=== PATIENT | male | born 1940 | race Caucasian/White ===

== ENCOUNTER 2016-08-11 11:29 | Outpatient (CLI) | payer MEDICARE, OTHER ==
[~2016-08-11] VITALS: Ht 175.3 cm; Wt 104.3 kg
[~2016-08-11 11:29] MED LIST: ALLP300T PO; ATEN-156 PO; FURO40TA4 PO; GBPN100C PO; LISI20TA PO; OXYC-281 PO; TMSL.4C PO
[2016-08-11] MEDS ORDERED: TRIAMCINOLONE ACET (KENALOG-40) 40 MG/ML 1 ML VIAL ONE (12:14)
[2016-08-11] MEDS ORDERED: BUPIVACAINE 0.25% 30 ML (SENSORCAINE) VIAL ONE (12:14)
[2016-08-11 12:50] VITALS: BP 130/70
[2016-08-11 13:24] VITALS: BP 151/70
--- NOTE | 2016-08-11 13:57 | Pain Medicine-Procedure ---
Procedure Pre-Op/Post-Op Diagnosis Diagnosis: disc disorder with radiculopathy, lumbar Indications for Operation Low back pain Attending Surgeon Meek Procedure Date of Service: Aug 11, 2016 Procedure: Lumbar Epidural Steroid Injection at the L5-S1 level under Fluoroscopic Guidance Procedure: Patient was identified in the holding area. After risks, benefits, and alternatives were discussed with the patient, informed consent was obtained. Patient was brought to the fluoroscopy suite and placed prone on the procedure room table. A time out was performed. Vital signs were monitored throughout the procedure. The patients low back was prepped and draped in the usual sterile fashion. The patients skin was anesthetized using 2% Lidocaine. A Tuohy needle was inserted and advanced to the L5-S1 epidural space under fluoroscopic guidance using the loss of resistance technique and intermittent projection of fluoroscopy. There was no paresthesia with needle placement. The needle position was confirmed in both the AP and lateral view. No contrast was utilized secondary to contrast allergy, after negative aspiration for heme or CSF, 2 ml of 0.25% Bupivicaine, 2ml of preservative free normal saline, and 80mg of Kenalog was injected. The needle was removed and a sterile bandage was placed and the patient was transferred to the recovery area in stable condition. After a brief period of observation, patient was discharged to home with no new neurological deficits and no apparent complications. Complications None HEIDI CAMPBELL MD Aug 11, 2016 1:57 pm
== END 2016-08-11 13:25 | disposition home or self-care (01) ==
LOC: CARD 11:29
PROVIDERS: ATTEND Pain Medicine Pain Medicine
DX: M51.16 Intervertebral disc disorders with radiculopathy, lumbar region (principal); Z79.899 Other long term (current) drug therapy
CPT/HCPCS: 62323

== ENCOUNTER 2016-10-23 12:33 | Outpatient (CLI) | payer MEDICARE, OTHER ==
[~2016-10-23] VITALS: Ht 175.3 cm; Wt 102.1 kg
[2016-10-23] MEDS ORDERED: BUPIVACAINE 0.25% 30 ML (SENSORCAINE) VIAL ONE (12:39)
[2016-10-23] MEDS ORDERED: TRIAMCINOLONE ACET (KENALOG-40) 40 MG/ML 1 ML VIAL ONE (12:39)
[2016-10-23 12:54] VITALS: BP 135/75
[2016-10-23 13:21] VITALS: BP 140/86
--- NOTE | 2016-10-23 14:30 | Pain Medicine-Procedure ---
Procedure Pre-Op/Post-Op Diagnosis Diagnosis: disc disorder with radiculopathy, lumbar Indications for Operation Low back pain and hip pain Attending Surgeon Meek Procedure Date of Service: Oct 23, 2016 Procedure: Lumbar Epidural Steroid Injection at the L5/S1 Level under Fluoroscopic Guidance and left sacroiliac joint injection Procedure: Patient was identified in the holding area. After risks, benefits, and alternatives were discussed with the patient, informed consent was obtained. Patient was brought to the fluoroscopy suite and placed prone on the procedure room table. A time out was performed. Vital signs were monitored throughout the procedure. The patients low back was prepped and draped in the usual sterile fashion. The patients skin was anesthetized using 2% Lidocaine. A Tuohy needle was inserted and advanced to the L5-S1 epidural space under fluoroscopic guidance using the loss of resistance technique and intermittent projection of fluoroscopy. There was no paresthesia with needle placement. The needle position was confirmed in both the AP and lateral view. No contrast dye was utilized secondary to history of contrast dye allergy after negative aspiration for heme or CSF, 2 ml of 0.25% Bupivicaine, 2ml of preservative free normal saline, and 80mg of Kenalog was injected. The needle was removed and a sterile bandage was placed. Attention was then directed to the left sacroiliac joint which was identified under fluoroscopic guidance. The skin overlying the posterior inferior one third of the sacroiliac joint was anesthetized with 1 percent lidocaine and a 22 -gauge 3-1/2 inch needle was inserted and advanced into the joint. Following negative aspiration a total of 40 mg of Kenalog and 2 mL of 0.25 percent bupivacaine was injected. Needle was flushed with lidocaine and removed. Sterile bandage was applied. Patient tolerated the procedures well with no apparent complications. Complications None HEIDI CAMPBELL MD Oct 23, 2016 2:30 pm
== END 2016-10-23 13:23 ==
LOC: CARD 12:33
PROVIDERS: ATTEND Pain Medicine Pain Medicine
DX: M53.3 Sacrococcygeal disorders, not elsewhere classified (principal); M51.16 Intervertebral disc disorders with radiculopathy, lumbar region
CPT/HCPCS: 27096; 62323

== ENCOUNTER → 2018-12-02 | Outpatient (CLI) | payer MEDICARE, OTHER ==
--- NOTE | 2018-12-02 15:22 | Diagnostic Imaging Report ---
INDICATION: Pain. FINDINGS: Arthritic changes to the wrist are present. No erosive element. No fracture or dislocation. IMPRESSION: No acute-appearing abnormality. Dictated by: Dictated on workstation # [id number]
--- NOTE | 2018-12-02 15:35 | Diagnostic Imaging Report ---
INDICATION: Pain with no known discrete injury. FINDINGS: Amputation at the level of the distal phalanx of the third finger has been performed. A ring adorns the fourth finger. There are osteoarthritic changes to the interphalangeal joints as well as carpus. No fracture or dislocation. IMPRESSION: Prior amputation and osteoarthritis. No acute-appearing bony abnormality. Dictated by: Dictated on workstation # [id number]
== END ==
LOC: RAD FS 14:54
PROVIDERS: ATTEND Family Medicine
DX: M19.042 Primary osteoarthritis, left hand (principal); M25.532 Pain in left wrist; Z89.022 Acquired absence of left finger(s)
CPT/HCPCS: 73110; 73130

== ENCOUNTER → 2019-07-22 | Outpatient (CLI) | payer MEDICARE, OTHER ==
--- NOTE | 2019-07-22 10:22 | Diagnostic Imaging Report ---
PROCEDURE: MR imaging cervical spine without contrast. TECHNIQUE: Multiplanar, multisequence MR imaging of the cervical spine was performed without contrast. INDICATION: Neck pain. No prior studies are available for comparison. FINDINGS: There is reversal of normal cervical lordotic curvature. Marrow signal intensity is unremarkable. There is multilevel degenerative disc disease with variable disc space narrowing and desiccation. This appears to be most significant at the C4-C5 and C5-C6 levels with more significant disc space narrowing and marginal osteophyte formation. The cervical spinal cord demonstrates normal homogeneous signal intensity. Craniocervical junction is unremarkable. C2-C3: Central canal is widely patent. Neural foramina are patent. C3-C4: Endplate osteophytes indent the ventral thecal sac but no central canal stenosis is seen. There is significant left neural foraminal stenosis and mild right neural foraminal stenosis. C4-C5: Endplate osteophytes indent the ventral thecal sac. No significant central canal stenosis is identified. There is severe left neural foraminal stenosis and moderate right neural foraminal stenosis. C5-C6: Endplate osteophytes indent the ventral thecal sac but no significant central canal narrowing is seen. There is severe left and moderate right neural foraminal stenosis. C6-C7: Central canal is patent. There is significant bilateral neural foraminal stenosis. C7-T1: Central canal is widely patent. There is moderate bilateral neural foraminal stenosis. Paraspinous tissues are unremarkable. IMPRESSION: Multilevel cervical spondylosis with multilevel neural foraminal stenosis described level by level above. No significant central canal stenosis is identified. Dictated by: Dictated on workstation # [id number]
== END ==
LOC: RAD 07:21
PROVIDERS: ATTEND Family Medicine
DX: M48.02 Spinal stenosis, cervical region (principal); M47.812 Spondylosis without myelopathy or radiculopathy, cervical region
CPT/HCPCS: 72141

== ENCOUNTER 2019-08-24 13:06 | Emergency (ER) | payer MEDICARE, OTHER ==
[~2019-08-24] VITALS: Ht 170.1 cm; Wt 94.7 kg
--- NOTE | 2019-08-24 13:43 | ED Abdominal Pain ---
General Chief Complaint: Abdominal/GI Problems Stated Complaint: LLQ PAIN History of Present Illness Date Seen by Provider: Aug 24, 2019 Time Seen by Provider: 13:20 Initial Comments Patient is here with left lower quadrant abdominal pain started on Sunday building over the last couple days has not had it before seems like it's muscular as he states had a normal bowel movement this morning no fever no chills history of bowel problems in the past with what sounds like an obstruction set it in for exploratory surgery when he had a bowel movement this all taken place about a year ago Timing/Duration: 2-3 Days Severity/Quality: Aching, Cramping, Sharp Location: LLQ Radiation: No Radiation Activities at Onset: None Modifying Factors: Improves With Coughing, Improves With Movement Associated Symptoms: No Fatigue, No Headache, No Weakness Allergies and Home Medications Allergies Coded Allergies: Iodinated Contrast Media (Unverified Allergy, Unknown, 08/24/19) Sulfa (Sulfonamide Antibiotics) (Unverified Allergy, Unknown, 08/24/19) alfuzosin HCl (Unverified Allergy, Unknown, 08/24/19) celecoxib (Unverified Allergy, Unknown, 08/24/19) levofloxacin (Verified Allergy, Unknown, 08/24/19) venom-wasp (Verified Allergy, Unknown, 08/24/19) Home Medications Allopurinol 300 Mg Tab, 300 MG PO HS, (Reported) Atenolol 50 Mg Tablet, 50 MG PO DAILY, (Reported) Furosemide 40 Mg Tablet, 1 EACH PO DAILY, (Reported) Gabapentin 100 Mg Cap, 200 MG PO HS, (Reported) Lisinopril 20 Mg Tablet, 20 MG PO DAILY, (Reported) Oxycodone Hcl/Acetaminophen 1 Each Tablet, 1 EACH PO Q6H PRN, (Reported) take 1 every 6hrs. as needed for pain Tamsulosin Hcl 0.4 Mg Cap, 0.4 MG PO DAILY, (Reported) take 1 tab 1/2 hr after supper daily Patient Home Medication List Home Medication List Reviewed: Yes Review of Systems Review of Systems Constitutional: No chills, No fever EENTM: No Ear Pain, No Throat Pain Respiratory: Denies Cough, Denies Wheezing Cardiovascular: Denies Chest Pain, Denies Irregular Heart Rate Gastrointestinal: Abdominal Pain; Denies Diarrhea, Denies Nausea, Denies Vomiting Genitourinary: Denies Frequency, Denies Hematuria Musculoskeletal: No joint pain, No joint swelling Skin: No lesions, No rash Psychiatric/Neurological: Denies Headache, Denies Numbness, Denies Tingling Past [id number] Hx Past Med/Social Hx: Reviewed Nursing Past Med/Soc Hx Patient Social History Alcohol Use: Denies Use Recreational Drug Use: No Smoking Status: Never a Smoker 2nd Hand Smoke Exposure: No Recent Foreign Travel: No Recent Hopitalizations: No Physical Abuse: No Sexual Abuse: No Mistreated: No Fear: No Immunizations Up To Date Tetanus Booster (TDap): Unknown Date of Pneumonia Vaccine: Apr 22, 2008 Seasonal Allergies Seasonal Allergies: No Past Medical History Surgeries: No Respiratory: Yes Sleep Apnea Cardiac: Yes (Proxsymal Atrial Tachycardia) Hypertension Neurological: No Genitourinary: Yes Benign Prostatic Hyperpl Gastrointestinal: No Musculoskeletal: Yes (GOUT) Endocrine: Yes Diabetes, Non-Insulin dep HEENT: No Cancer: Yes Skin Psychosocial: No Integumentary: No Blood Disorders: No Physical Exam Vital Signs Vital Signs - First Documented 08/24/19 13:36 Temp 37.1 Pulse 69 Resp 18 B/P (MAP) 112/56 (74) Pulse Ox 96 O2 Delivery Room Air Capillary Refill : Height/Weight/BMI Height: 5'9.00" Weight: 225lbs. 0.0oz. 102.992222jf; 33.2 BMI Method: General Appearance: WD/WN, no apparent distress HEENT: PERRL/EOMI, normal ENT inspection, pharynx normal Neck: full range of motion, normal inspection Respiratory: normal breath sounds, no respiratory distress Cardiovascular: regular rate, rhythm, no murmur Gastrointestinal: soft; No distended; tenderness Extremities: normal range of motion, non-tender Neurologic/Psychiatric: normal mood/affect, oriented x 3 Skin: normal color, warm/dry; No rash Progress/Results/Core Measures Results/Orders Lab Results Laboratory Tests Test 08/24/19 13:45 Range/Units White Blood Count 8.7 4.3-11.0 10^3/uL Red Blood Count 5.37 4.35-5.85 10^6/uL Hemoglobin 16.6 13.3-17.7 G/DL Hematocrit 50 40-54 % Mean Corpuscular Volume 93 80-99 FL Mean Corpuscular Hemoglobin 31 25-34 PG Mean Corpuscular Hemoglobin Concent 33 32-36 G/DL Red Cell Distribution Width 14.7 H 10.0-14.5 % Platelet Count 178 130-400 10^3/uL Mean Platelet Volume 10.6 H 7.4-10.4 FL Neutrophils (%) (Auto) 61 42-75 % Lymphocytes (%) (Auto) 29 12-44 % Monocytes (%) (Auto) 8 0-12 % Eosinophils (%) (Auto) 1 0-10 % Basophils (%) (Auto) 1 0-10 % Neutrophils # (Auto) 5.3 1.8-7.8 X 10^3 Lymphocytes # (Auto) 2.5 1.0-4.0 X 10^3 Monocytes # (Auto) 0.7 0.0-1.0 X 10^3 Eosinophils # (Auto) 0.1 0.0-0.3 10^3/uL Basophils # (Auto) 0.0 0.0-0.1 10^3/uL Neutrophils % (Manual) 69 % Lymphocytes % (Manual) 24 % Monocytes % (Manual) 4 % Eosinophils % (Manual) 2 % Basophils % (Manual) 1 % Band Neutrophils 0 % Blood Morphology Comment NORMAL Urine Color YELLOW Urine Clarity CLEAR Urine pH 7.0 5-9 Urine Specific [place] 1.020 1.016-1.022 Urine Protein NEGATIVE NEGATIVE Urine Glucose (UA) NEGATIVE NEGATIVE Urine Ketones NEGATIVE NEGATIVE Urine Nitrite NEGATIVE NEGATIVE Urine Bilirubin NEGATIVE NEGATIVE Urine Urobilinogen 0.2 < = 1.0 MG/DL Urine Leukocyte Esterase NEGATIVE NEGATIVE Urine RBC (Auto) NEGATIVE NEGATIVE Urine RBC NONE /HPF Urine WBC NONE /HPF Urine Squamous Epithelial Cells RARE /HPF Urine Crystals NONE /LPF Urine Bacteria NONE /HPF Urine Casts NONE /LPF Urine Mucus NEGATIVE /LPF Urine Culture Indicated NO Sodium Level 139 135-145 MMOL/L Potassium Level 4.1 3.6-5.0 MMOL/L Chloride Level 101 98-107 MMOL/L Carbon Dioxide Level 24 21-32 MMOL/L Anion Gap 14 5-14 MMOL/L Blood Urea Nitrogen 23 H 7-18 MG/DL Creatinine 1.14 0.60-1.30 MG/DL Estimat Glomerular Filtration Rate > 60 BUN/Creatinine Ratio 20 Glucose Level 124 H 70-105 MG/DL Calcium Level 9.5 8.5-10.1 MG/DL Corrected Calcium 9.2 8.5-10.1 MG/DL Total Bilirubin 0.6 0.1-1.0 MG/DL Aspartate Amino Transf (AST/SGOT) 24 5-34 U/L Alanine Aminotransferase (ALT/SGPT) 19 0-55 U/L Alkaline Phosphatase 99 40-136 U/L Total Protein 7.6 6.4-8.2 GM/DL Albumin 4.4 3.2-4.5 GM/DL My Orders Orders - MELVIN PADILLA JR, MD Cbc And Manual Diff (08/24/19 13:36) Comprehensive Metabolic Panel (08/24/19 13:36) Urinalysis (08/24/19 13:36) Ct Abdomen/Pelvis Wo (08/24/19 13:36) Vital Signs/I&O 08/24/19 13:36 Temp 37.1 Pulse 69 Resp 18 B/P (MAP) 112/56 (74) Pulse Ox 96 O2 Delivery Room Air Progress Progress Note : Time: 14:[address] scan showed an epiploic appendix at this point to feel like it's consistent with what he is feeling. Will follow up with his physician mid to late week Departure Impression Primary Impression: Epiploic appendagitis Disposition: 01 HOME, SELF-CARE Condition: Stable Departure-Patient Inst. Referrals: SARAH MURRY MD (PCP/Family) Primary Care Physician MELVIN PADILLA JR, MD Aug 24, 2019 13:43
[2019-08-24 13:57] LABS: BILIRUBIN,URINE NEGATIVE (NEGATIVE); CLARITY,URINE CLEAR; COLOR,URINE YELLOW; GLUCOSE, URINE (UA) NEGATIVE (NEGATIVE); KETONES,URINE NEGATIVE (NEGATIVE); LEUKOCYTE ESTERASE ,URINE NEGATIVE (NEGATIVE); NITRITE,URINE NEGATIVE (NEGATIVE); PROTEIN,URINE NEGATIVE (NEGATIVE); SQUAMOUS EPITHELIAL CELL,UR RARE /HPF; WHITE BLOOD COUNT 8.7 10^3/uL (4.3-11.0)
[2019-08-24 13:58] LABS: BASOPHILS % (AUTO) 1 % (0-10); EOSINOPHILS # (AUTO) 0.1 10^3/uL (0.0-0.3); EOSINOPHILS % (AUTO) 1 % (0-10); HEMATOCRIT 50 % (40-54); HEMOGLOBIN 16.6 G/DL (13.3-17.7); LYMPHOCYTES # (AUTO) 2.5 X 10^3 (1.0-4.0); LYMPHOCYTES % (AUTO) 29 % (12-44); MEAN CORPUSCULAR HEMOGLOBIN 31 PG (25-34); MEAN CORPUSCULAR HGB CONC 33 G/DL (32-36); MEAN CORPUSCULAR VOLUME 93 FL (80-99); MEAN PLATELET VOLUME 10.6 FL (7.4-10.4); MONOCYTES # (AUTO) 0.7 X 10^3 (0.0-1.0); MONOCYTES % (AUTO) 8 % (0-12); NEUTROPHILS # (AUTO) 5.3 X 10^3 (1.8-7.8); NEUTROPHILS % (AUTO) 61 % (42-75); PLATELET COUNT 178 10^3/uL (130-400); RED CELL DISTRIBUTION WIDTH 14.7 % (10.0-14.5)
[2019-08-24 14:21] LABS: CHLORIDE 101 MMOL/L (98-107); POTASSIUM 4.1 MMOL/L (3.6-5.0); SODIUM 139 MMOL/L (135-145)
[2019-08-24 14:22] LABS: ALANINE AMINOTRANSFERASE 19 U/L (0-55); ALBUMIN 4.4 GM/DL (3.2-4.5); ALKALINE PHOSPHATASE 99 U/L (40-136); BILIRUBIN,TOTAL 0.6 MG/DL (0.1-1.0); BUN/CREATININE RATIO 20; CALCIUM 9.5 MG/DL (8.5-10.1); CARBON DIOXIDE 24 MMOL/L (21-32); CREATININE SERUM 1.14 MG/DL (0.60-1.30); GFR ESTIMATED > 60; GLUCOSE 124 MG/DL (70-105); TOTAL PROTEIN 7.6 GM/DL (6.4-8.2)
--- NOTE | 2019-08-24 14:22 | Diagnostic Imaging Report ---
PROCEDURE: CT abdomen and pelvis without contrast. TECHNIQUE: Multiple contiguous axial images were obtained through the abdomen and pelvis without the use of intravenous contrast. Auto Exposure Controls were utilized during the CT exam to meet ALARA standards for radiation dose reduction. INDICATION: Lower abdominal pain. COMPARISON: None. FINDINGS: The heart is unremarkable. Bibasilar scarring is noted without focal consolidation. Bilateral nonobstructing renal calculi are seen. The largest in the right mid kidney measures 0.4 cm and the largest in the mid left kidney measures 0.3 cm. No evidence of hydronephrosis or obstructing calculi. The urinary bladder is nondistended. The liver, spleen, pancreas, and adrenal glands have a normal noncontrast CT appearance. Cholelithiasis is present without CT evidence of acute cholecystitis. There is no pathologically enlarged mesenteric or retroperitoneal adenopathy. The bowel loops are nondilated. Focal loculated fat stranding is seen adjacent to the distal descending colon/proximal sigmoid colon in the left lower quadrant (image 57 series 2). There is no free fluid or free air. Degenerative changes are noted in the lumbar spine without acute abnormalities. There is no free air, loculated collection, or adenopathy in the pelvis. IMPRESSION: 1. Findings most consistent with epiploic appendagitis involving the distal descending colon/proximal sigmoid colon. 2. Bilateral nonobstructing renal calculi. No obstructing calculi or hydronephrosis. 3. Cholelithiasis without CT evidence of acute cholecystitis. Dictated by: Dictated on workstation # [id number]
[2019-08-24 14:23] LABS: BAND NEUTROPHILS 0 %; BASOPHILS % (MANUAL) 1 %; EOSINOPHILS % (MANUAL) 2 %; LYMPHOCYTES % (MANUAL) 24 %; MONOCYTES % (MANUAL) 4 %; NEUTROPHILS % (MANUAL) 69 %; RBC MORPH NORMAL
[2019-08-24 14:53] VITALS: BP 112/56
== END 2019-08-24 14:52 | disposition home or self-care (01) ==
LOC: EDUNIT# 13:06 → ER FS 13:08
DX: K65.9 Peritonitis, unspecified (principal); I10 Essential (primary) hypertension; M10.9 Gout, unspecified; Z85.828 Personal history of other malignant neoplasm of skin; Z91.041 Radiographic dye allergy status; Z88.2 Allergy status to sulfonamides; Z88.6 Allergy status to analgesic agent; Z88.1 Allergy status to other antibiotic agents; Z88.8 Allergy status to other drugs, medicaments and biological substances
CPT/HCPCS: 36415; 74176; 80053; 81000; 85007; 85027

== ENCOUNTER 2020-10-03 19:30 | Emergency (ER) | payer MEDICARE, OTHER ==
--- NOTE | 2020-10-03 20:10 | ED General ---
General Chief Complaint: Fever-Adult/Adol Stated Complaint: FEVER/CHILLS Source of Information: Patient Exam Limitations: No Limitations History of Present Illness Date Seen by Provider: Oct 03, 2020 Time Seen by Provider: 19:53 80-year-old male with hypertension presents with fevers and nausea/vomiting. Patient states that this morning he had an episode of nausea and vomiting x1 that was self-limited. Nonbloody, nonbilious. Since that time patient has felt fine but noticed this evening he had some chills so took his temperature and it read 101 F so he came in for evaluation. At this current time, patient has no complaints. He says all of his symptoms have resolved but came in because of the fever. Patient denies headache, rash, numbness, tingling, dizziness, chest pain, shortness of breath, abdominal pain, nausea, vomiting, dysuria, hematuria. Patient received his first COVID-19 vaccine 3 weeks ago Allergies and Home Medications Allergies Coded Allergies: Iodinated Contrast Media (Unverified Allergy, Unknown, 08/24/19) Sulfa (Sulfonamide Antibiotics) (Unverified Allergy, Unknown, 08/24/19) alfuzosin HCl (Unverified Allergy, Unknown, 08/24/19) celecoxib (Unverified Allergy, Unknown, 08/24/19) levofloxacin (Verified Allergy, Unknown, 08/24/19) venom-wasp (Verified Allergy, Unknown, 08/24/19) Home Medications Allopurinol 300 Mg Tab, 300 MG PO HS, (Reported) Atenolol 50 Mg Tablet, 50 MG PO DAILY, (Reported) Furosemide 40 Mg Tablet, 1 EACH PO DAILY, (Reported) Gabapentin 100 Mg Cap, 200 MG PO HS, (Reported) Lisinopril 20 Mg Tablet, 20 MG PO DAILY, (Reported) Oxycodone Hcl/Acetaminophen 1 Each Tablet, 1 EACH PO Q6H PRN, (Reported) take 1 every 6hrs. as needed for pain Tamsulosin Hcl 0.4 Mg Cap, 0.4 MG PO DAILY, (Reported) take 1 tab 1/2 hr after supper daily Patient Home Medication List Home Medication List Reviewed: Yes Review of Systems Review of Systems Constitutional: chills, fever EENTM: No blurred vision, No double vision Respiratory: No cough, No short of breath Cardiovascular: No chest pain, No syncope Gastrointestinal: No abdominal pain, No constipation, No diarrhea; nausea, vomiting Genitourinary: No dysuria, No frequency Musculoskeletal: No back pain Skin: No rash All Other Systems Reviewed Negative Unless Noted: Yes Past Cmfmdcp-Quyfyh-Tnmlve Hx Past Med/Social Hx: Reviewed Nursing Past Med/Soc Hx Patient Social History Alcohol Use: Denies Use Smoking Status: Never a Smoker 2nd Hand Smoke Exposure: No Recent Hopitalizations: No Immunizations Up To Date Tetanus Booster (TDap): Unknown Date of Pneumonia Vaccine: Apr 22, 2008 Seasonal Allergies Seasonal Allergies: No Past Medical History Surgeries: No Respiratory: Yes Sleep Apnea Cardiac: Yes (Proxsymal Atrial Tachycardia) Hypertension Neurological: No Genitourinary: Yes Benign Prostatic Hyperpl Gastrointestinal: No Musculoskeletal: Yes (GOUT) Endocrine: Yes Diabetes, Non-Insulin dep HEENT: No Cancer: Yes Skin Psychosocial: No Integumentary: No Blood Disorders: No Family Medical History Reviewed Nursing Family Hx Physical Exam Vital Signs Vital Signs - First Documented 10/03/20 19:50 Temp 38.4 Pulse 85 Resp 18 B/P (MAP) 134/62 (86) Pulse Ox 95 O2 Delivery Room Air Capillary Refill : Height, Weight, BMI Height: 5'9.00" Weight: 225lbs. 0.0oz. [id number]; 32.00 BMI Method: General Appearance: No Apparent Distress, WD/WN Eyes: Bilateral Eye Normal Inspection, Bilateral Eye PERRL HEENT: PERRL/EOMI, TMs Normal, Pharynx Normal Neck: Full Range of Motion, Normal Inspection Respiratory: Lungs Clear, Normal Breath Sounds Cardiovascular: Regular Rate, Rhythm, No Edema Gastrointestinal: Normal Bowel Sounds, No Organomegaly, Non Tender, Soft Back: Normal Inspection, No CVA Tenderness, No Vertebral Tenderness Extremity: Normal Capillary Refill, Normal Inspection, Normal Range of Motion Neurologic/Psychiatric: Alert, Oriented x3, No Motor/Sensory Deficits, Normal Mood/Affect, ice sculptor II-XII Norm as Tested Skin: Normal Color, Warm/Dry Lymphatic: No Adenopathy Progress/Results/Core Measures Suspected Sepsis SIRS Temperature: Pulse: Respiratory Rate: Laboratory Tests 10/03/20 20:13: White Blood Count 9.0 Blood Pressure / Mean: Laboratory Tests 10/03/20 20:13: Creatinine 1.06, INR Comment 1.0, Platelet Count 177, Total Bilirubin 2.7H Results/Orders Lab Results Laboratory Tests Test 10/03/20 20:13 10/03/20 20:15 Range/Units White Blood Count 9.0 4.3-11.0 10^3/uL Red Blood Count 5.35 4.35-5.85 10^6/uL Hemoglobin 16.1 13.3-17.7 G/DL Hematocrit 48 40-54 % Mean Corpuscular Volume 91 80-99 FL Mean Corpuscular Hemoglobin 30 25-34 PG Mean Corpuscular Hemoglobin Concent 33 32-36 G/DL Red Cell Distribution Width 13.9 10.0-14.5 % Platelet Count 177 130-400 10^3/uL Mean Platelet Volume 10.3 7.4-10.4 FL Immature Granulocyte % (Auto) 0 % Neutrophils (%) (Auto) 81 H 42-75 % Lymphocytes (%) (Auto) 8 L 12-44 % Monocytes (%) (Auto) 10 0-12 % Eosinophils (%) (Auto) 0 0-10 % Basophils (%) (Auto) 0 0-10 % Neutrophils # (Auto) 7.3 1.8-7.8 X 10^3 Lymphocytes # (Auto) 0.8 L 1.0-4.0 X 10^3 Monocytes # (Auto) 0.9 0.0-1.0 X 10^3 Eosinophils # (Auto) 0.0 0.0-0.3 10^3/uL Basophils # (Auto) 0.0 0.0-0.1 10^3/uL Immature Granulocyte # (Auto) 0.0 0.0-0.1 10^3/uL Prothrombin Time 13.8 12.2-14.7 SEC INR Comment 1.0 0.8-1.4 Sodium Level 135 135-145 MMOL/L Potassium Level 4.1 3.6-5.0 MMOL/L Chloride Level 103 98-107 MMOL/L Carbon Dioxide Level 19 L 21-32 MMOL/L Anion Gap 13 5-14 MMOL/L Blood Urea Nitrogen 17 7-18 MG/DL Creatinine 1.06 0.60-1.30 MG/DL Estimat Glomerular Filtration Rate > 60 BUN/Creatinine Ratio 16 Glucose Level 111 H 70-105 MG/DL Calcium Level 9.2 8.5-10.1 MG/DL Corrected Calcium 9.4 8.5-10.1 MG/DL Total Bilirubin 2.7 H 0.1-1.0 MG/DL Aspartate Amino Transf (AST/SGOT) 293 H 5-34 U/L Alanine Aminotransferase (ALT/SGPT) 163 H 0-55 U/L Alkaline Phosphatase 197 H 40-136 U/L C-Reactive Protein 1.48 H <0.50 MG/DL Total Protein 7.3 6.4-8.2 GM/DL Albumin 3.8 3.2-4.5 GM/DL Lipase 26 8-78 U/L My Orders Orders - BARB MORALES MD Cbc With Automated Diff (10/03/20 20:03) Comprehensive Metabolic Panel (10/03/20 20:03) Chest 1 View Ap/Pa Only (10/03/20 20:03) Protime With Inr (10/03/20 20:03) Crp Fs (10/03/20 20:03) Ed Iv/Invasive Line Start (10/03/20 20:06) Coronavirus Sars-Cov-2 So 2019 (10/03/20 20:18) Lipase (10/03/20 20:53) Ct Abdomen/Pelvis Wo (10/03/20 20:56) Vital Signs/I&O 10/03/20 19:50 Temp 38.4 Pulse 85 Resp 18 B/P (MAP) 134/62 (86) Pulse Ox 95 O2 Delivery Room Air Capillary Refill : Progress Note : Progress Note 2029 -discussed elevated liver enzymes and bilirubin. These findings with fever, right upper quadrant pain, nausea and vomiting raised the concern for choledocholithiasis. Discussed with patient need for CT abdomen pelvis to which she agreed. 2114 - discussed case with surgery. recommend discussing course with patient. After long discussion, patient prefers to go home and follow up for imaging and eval tomorrow. Strict return precautions given. Diagnostic Imaging Diagonstic Imaging: Xray Plain Films/CT/US/NM/MRI: chest Comments CT ABDOMEN/PELVIS WO PROCEDURE: CT abdomen and pelvis without contrast. TECHNIQUE: Multiple contiguous axial images were obtained through the abdomen and pelvis without the use of intravenous contrast. Auto Exposure Controls were utilized during the CT exam to meet ALARA standards for radiation dose reduction. DATE: October 03, 2020. COMPARISON: CT abdomen and pelvis August 24, 2019. INDICATION: 80-year-old male, right upper quadrant abdominal pain. FINDINGS: There are limitations for evaluation of the abdominal organs, neoplastic processes, abscess, and limited evaluation of the vasculature relating to the lack of intravenous contrast. There are peripheral reticular lung opacities consistent with findings of interstitial lung disease. There is no peripheral honeycombing. There is no additional consolidation in the imaged lung bases. The heart is not enlarged. There is no pericardial effusion. The liver is unremarkable in size and contour. There is cholelithiasis without evidence of acute cholecystitis. No biliary ductal dilation. The main pancreatic duct is not grossly dilated. Limited noncontrast evaluation of the pancreatic parenchyma is unremarkable. The spleen is normal in size. The adrenal glands are unremarkable. There is a 3 mm nonobstructing right renal stone on axial image 32. There is 2 mm nonobstructing left renal stone on axial image 33. Urinary collecting systems are not distended. There is no identified ureteral stone. Urinary bladder is unremarkable. The intestinal tract is not distended. There is no evidence of acute appendicitis. There is no free intraperitoneal air. There is no drainable fluid collection. There is no free pelvic fluid. There are atherosclerotic calcifications. There is no identified abnormally enlarged lymph node in the abdomen or pelvis meeting CT size criteria for adenopathy. There are multilevel degenerative changes of the spine. There is no identified acute bony abnormality. IMPRESSION: CT ABDOMEN AND PELVIS. 1. Cholelithiasis without evidence of acute cholecystitis. No biliary ductal dilation. 2. Findings of interstitial lung disease without identified acute cardiopulmonary abnormality. 3. Nonobstructing renal stones without ureteral stone or hydronephrosis. 4. No identified acute abnormality in the abdomen or pelvis. CHEST 1 VIEW AP/PA ONLY EXAMINATION: Chest radiograph, portable AP view. DATE: 10/03/2020 8:22 PM INDICATION: 80-year-old male, fever. COMPARISON: CT abdomen and pelvis August 24, 2019. FINDINGS: Heart size and mediastinal contours are unremarkable. There is no identified pneumothorax. There is no large pleural effusion. There are bilateral predominantly interstitial opacities with a mid and lower lung zone predominance. There is note of mild findings of interstitial lung disease on comparison CT of August 24, 2019. IMPRESSION: 1. Bilateral predominantly interstitial opacities with a mid and lower lung zone predominance. This most likely reflects findings of interstitial lung disease. Chest radiograph comparisons are not available to directly compare. Some components of interstitial edema or atypical infection would be difficult to exclude. Departure Impression Primary Impression: Fever Qualified Codes: R50.9 - Fever, unspecified Additional Impressions: Cholelithiasis Qualified Codes: K80.20 - Calculus of gallbladder without cholecystitis without obstruction Nausea & vomiting Qualified Codes: R11.2 - Nausea with vomiting, unspecified Disposition: 01 HOME, SELF-CARE Condition: Stable Departure-Patient Inst. Decision time for Depature: 21:51 Referrals: JENNIFER MOYER PANKAJ K MD (PCP/Family) Primary Care Physician Patient Instructions: Gallstones (DC), Gallbladder Diet, Fever, Adult (DC) BARB MORALES MD Oct 03, 2020 20:10
[2020-10-03 20:29] LABS: BASOPHILS % (AUTO) 0 % (0-10); EOSINOPHILS % (AUTO) 0 % (0-10); HEMATOCRIT 48 % (40-54); HEMOGLOBIN 16.1 G/DL (13.3-17.7); LYMPHOCYTES # (AUTO) 0.8 X 10^3 (1.0-4.0); LYMPHOCYTES % (AUTO) 8 % (12-44); MEAN CORPUSCULAR HEMOGLOBIN 30 PG (25-34); MEAN CORPUSCULAR HGB CONC 33 G/DL (32-36); MEAN CORPUSCULAR VOLUME 91 FL (80-99); MEAN PLATELET VOLUME 10.3 FL (7.4-10.4); MONOCYTES # (AUTO) 0.9 X 10^3 (0.0-1.0); MONOCYTES % (AUTO) 10 % (0-12); NEUTROPHILS # (AUTO) 7.3 X 10^3 (1.8-7.8); NEUTROPHILS % (AUTO) 81 % (42-75); PLATELET COUNT 177 10^3/uL (130-400)
--- NOTE | 2020-10-03 20:32 | Diagnostic Imaging Report ---
EXAMINATION: Chest radiograph, portable AP view. DATE: 10/03/2020 8:22 PM INDICATION: 80-year-old male, fever. COMPARISON: CT abdomen and pelvis August 24, 2019. FINDINGS: Heart size and mediastinal contours are unremarkable. There is no identified pneumothorax. There is no large pleural effusion. There are bilateral predominantly interstitial opacities with a mid and lower lung zone predominance. There is note of mild findings of interstitial lung disease on comparison CT of August 24, 2019. IMPRESSION: 1. Bilateral predominantly interstitial opacities with a mid and lower lung zone predominance. This most likely reflects findings of interstitial lung disease. Chest radiograph comparisons are not available to directly compare. Some components of interstitial edema or atypical infection would be difficult to exclude. Dictated by: Dictated on workstation # [id number]
[2020-10-03 20:39] LABS: ALANINE AMINOTRANSFERASE 163 U/L (0-55); ALBUMIN 3.8 GM/DL (3.2-4.5); ALKALINE PHOSPHATASE 197 U/L (40-136); BILIRUBIN,TOTAL 2.7 MG/DL (0.1-1.0); BUN/CREATININE RATIO 16; CALCIUM 9.2 MG/DL (8.5-10.1); CARBON DIOXIDE 19 MMOL/L (21-32); CHLORIDE 103 MMOL/L (98-107); CREATININE SERUM 1.06 MG/DL (0.60-1.30); GFR ESTIMATED > 60; GLUCOSE 111 MG/DL (70-105); POTASSIUM 4.1 MMOL/L (3.6-5.0); SODIUM 135 MMOL/L (135-145); TOTAL PROTEIN 7.3 GM/DL (6.4-8.2)
[2020-10-03 21:00] LABS: PROTHROMBIN TIME PATIENT 13.8 SEC (12.2-14.7)
--- NOTE | 2020-10-03 21:24 | Diagnostic Imaging Report ---
PROCEDURE: CT abdomen and pelvis without contrast. TECHNIQUE: Multiple contiguous axial images were obtained through the abdomen and pelvis without the use of intravenous contrast. Auto Exposure Controls were utilized during the CT exam to meet ALARA standards for radiation dose reduction. DATE: October 03, 2020. COMPARISON: CT abdomen and pelvis August 24, 2019. INDICATION: 80-year-old male, right upper quadrant abdominal pain. FINDINGS: There are limitations for evaluation of the abdominal organs, neoplastic processes, abscess, and limited evaluation of the vasculature relating to the lack of intravenous contrast. There are peripheral reticular lung opacities consistent with findings of interstitial lung disease. There is no peripheral honeycombing. There is no additional consolidation in the imaged lung bases. The heart is not enlarged. There is no pericardial effusion. The liver is unremarkable in size and contour. There is cholelithiasis without evidence of acute cholecystitis. No biliary ductal dilation. The main pancreatic duct is not grossly dilated. Limited noncontrast evaluation of the pancreatic parenchyma is unremarkable. The spleen is normal in size. The adrenal glands are unremarkable. There is a 3 mm nonobstructing right renal stone on axial image 32. There is 2 mm nonobstructing left renal stone on axial image 33. Urinary collecting systems are not distended. There is no identified ureteral stone. Urinary bladder is unremarkable. The intestinal tract is not distended. There is no evidence of acute appendicitis. There is no free intraperitoneal air. There is no drainable fluid collection. There is no free pelvic fluid. There are atherosclerotic calcifications. There is no identified abnormally enlarged lymph node in the abdomen or pelvis meeting CT size criteria for adenopathy. There are multilevel degenerative changes of the spine. There is no identified acute bony abnormality. IMPRESSION: CT ABDOMEN AND PELVIS. 1. Cholelithiasis without evidence of acute cholecystitis. No biliary ductal dilation. 2. Findings of interstitial lung disease without identified acute cardiopulmonary abnormality. 3. Nonobstructing renal stones without ureteral stone or hydronephrosis. 4. No identified acute abnormality in the abdomen or pelvis. Dictated by: Dictated on workstation # [id number]
[2020-10-03 22:03] VITALS: BP 134/62
== END 2020-10-03 22:01 | disposition home or self-care (01) ==
LOC: EDUNIT# 19:30 → ER FS 19:33
DX: K80.20 Calculus of gallbladder without cholecystitis without obstruction (principal); I10 Essential (primary) hypertension; N40.0 Benign prostatic hyperplasia without lower urinary tract symptoms; Z20.822 Contact with and (suspected) exposure to COVID-19; Z88.2 Allergy status to sulfonamides; Z88.1 Allergy status to other antibiotic agents; Z91.041 Radiographic dye allergy status; Z88.8 Allergy status to other drugs, medicaments and biological substances; Z85.828 Personal history of other malignant neoplasm of skin
CPT/HCPCS: 36415; 71045; 74176; 80053; 83690; 85025; 85610; 86141; 99284; U0002; 87635

== ENCOUNTER 2020-10-04 16:30 | Emergency (ER) | payer MEDICARE, OTHER ==
[~2020-10-04] VITALS: Ht 170.2 cm; Wt 96.2 kg
--- NOTE | 2020-10-04 16:59 | ED General ---
General Stated Complaint: BILIRUBIN ELEVATED Source of Information: Patient, Old Records History of Present Illness Date Seen by Provider: Oct 04, 2020 Time Seen by Provider: 16:30 Initial Comments 80-year-old male presenting with elevated bilirubin on lab. He was seen last night in the emergency department for fever of 101 and having 1 episode of nausea and vomiting. He also had some right-sided upper abdominal pain and states this came on after eating some cortés with grease. He had a CT scan and labs that showed evidence of gallstones but no cholecystitis. He was offered admission for further evaluation and work-up but declined him at home. He came back today for an outpatient ultrasound as well as repeat labs. The outpatient ultrasound showed multiple gallstones and no pericholecystic fluid. He had appeared more jaundiced today and his labs showed his bilirubin went from 2.7 last night to 9.0 today. When checked with Dr. Portillo the surgeon on-call he recommended the patient be transferred to a facility that had ERCP capabilities and GI. Patient reports last eating some eggs and drinking some water around 830 this morning. He has had some right-sided abdominal and shoulder and chest pain for the last few weeks. He said that this does get a little worse after eating. Allergies and Home Medications Allergies Coded Allergies: Iodinated Contrast Media (Unverified Allergy, Unknown, 08/24/19) Sulfa (Sulfonamide Antibiotics) (Unverified Allergy, Unknown, 08/24/19) alfuzosin HCl (Unverified Allergy, Unknown, 08/24/19) celecoxib (Unverified Allergy, Unknown, 08/24/19) levofloxacin (Verified Allergy, Unknown, 08/24/19) venom-wasp (Verified Allergy, Unknown, 08/24/19) Home Medications Allopurinol 300 Mg Tab, 300 MG PO HS, (Reported) Atenolol 50 Mg Tablet, 50 MG PO DAILY, (Reported) Furosemide 40 Mg Tablet, 1 EACH PO DAILY, (Reported) Gabapentin 100 Mg Cap, 200 MG PO HS, (Reported) Lisinopril 20 Mg Tablet, 20 MG PO DAILY, (Reported) Oxycodone Hcl/Acetaminophen 1 Each Tablet, 1 EACH PO Q6H PRN, (Reported) take 1 every 6hrs. as needed for pain Tamsulosin Hcl 0.4 Mg Cap, 0.4 MG PO DAILY, (Reported) take 1 tab 1/2 hr after supper daily Patient Home Medication List Home Medication List Reviewed: Yes Review of Systems Review of Systems Constitutional: chills, fever (101 F yesterday) EENTM: no symptoms reported Respiratory: no symptoms reported; No cough Cardiovascular: no symptoms reported Gastrointestinal: RUQ; No diarrhea; nausea, vomiting (x1 last night) Genitourinary: other (dark colored urine in last 24 hours becoming more orange colored) Musculoskeletal: see HPI, other (pain going up to right shoulder from RUQ for last few weeks and worse after eating) Skin: change in color (becoming more jaundice ) Psychiatric/Neurological: Denies Headache Hematologic/Lymphatic: Denies Easy Bleeding, Denies Easy Bruising Past Kxyyath-Vhrnlt-Jkwibb Hx Past Med/Social Hx: Reviewed Nursing Past Med/Soc Hx Patient Social History 2nd Hand Smoke Exposure: No Recent Hopitalizations: No Immunizations Up To Date Tetanus Booster (TDap): Unknown Date of Pneumonia Vaccine: Apr 22, 2008 Seasonal Allergies Seasonal Allergies: No Past Medical History Surgeries: No Respiratory: Yes Sleep Apnea Cardiac: Yes (Proxsymal Atrial Tachycardia) Hypertension Neurological: No Genitourinary: Yes Benign Prostatic Hyperpl Gastrointestinal: No Musculoskeletal: Yes (GOUT) Endocrine: Yes Diabetes, Non-Insulin dep HEENT: No Cancer: Yes Skin Psychosocial: No Integumentary: No Blood Disorders: No Physical Exam Vital Signs Vital Signs - First Documented 10/04/20 16:32 Temp 37.2 Pulse 76 Resp 18 B/P (MAP) 145/73 (97) Pulse Ox 96 O2 Delivery Room Air Capillary Refill : Height, Weight, BMI Height: 5'9.00" Weight: 225lbs. 0.0oz. [id number]; 32.00 BMI Method: General Appearance: No Apparent Distress, WD/WN HEENT: PERRL/EOMI, Pharynx Normal; No Photophobia; Scleral Icterus (L), Scleral Icterus (R) Neck: Supple Respiratory: Chest Non Tender, Lungs Clear, Normal Breath Sounds, No Accessory Muscle Use, No Respiratory Distress Cardiovascular: Regular Rate, Rhythm, Normal Peripheral Pulses Gastrointestinal: Normal Bowel Sounds, No Pulsatile Mass, Soft, Distended (mild distention to abdomen and ventral hernia); No Guarding; Hernia (ventral); No Rebound; Other (Positive Mendoza's sign on exam as pt had pain with deep palpation of RUQ, but only when he takes a deep breath) Rectal: Deferred Back: No CVA Tenderness Extremity: Normal Capillary Refill, No Pedal Edema Neurologic/Psychiatric: Alert, Oriented x3, drug and alcohol counselor II-XII Norm as Tested Skin: Warm/Dry, Jaundice Focused Exam Lactate Level 10/04/20 17:00: Lactic Acid Level 1.02 Lactic Acid Level Laboratory Tests Test 10/04/20 17:00 Lactic Acid Level 1.02 MMOL/L (0.50-2.00) Progress/Results/Core Measures Suspected Sepsis SIRS Temperature: Pulse: Respiratory Rate: Blood Pressure / Mean: 10/04/20 17:00: 10/04/20 17:00: 10/04/20 17:00: Lactic Acid Level 1.02 10/04/20 17:00: Lactic Acid Level 1.02 Results/Orders Lab Results Laboratory Tests Test 10/04/20 17:00 Range/Units Lactic Acid Level 1.02 0.50-2.00 MMOL/L My Orders Orders - YSABEL WILSON MD Lactic Acid Analyzer (10/04/20 17:10) Ed Iv/Invasive Line Start (10/04/20 17:10) Vital Signs/I&O 10/04/20 10/04/20 16:32 18:14 Temp 37.2 Pulse 76 76 Resp 18 18 B/P (MAP) 145/73 (97) 145/73 Pulse Ox 96 96 O2 Delivery Room Air Room Air Capillary Refill : Progress Note #1: Progress Note Labs show increased Total bilirubin from 2.7 to 9.0 today. other LFTs about the same. INR 1.0 last night. Ultrasound shows multiple stones but no dilation of common bile duct. [facility] if possible since Dr. Portillo, university relations recruiter surgeon, requested he go to a larger facility that has GI capability and can do ERCP if necessary. Progress Note #2: Time: 17:01 Progress Note [facility] reports that they do not have GI and ERCP available. Spoke with the transfer center at [facility] and they do have that capability. Will call back with the hospitalist and the GI doctor on the phone. 1718 d/w Dr. Ceja, Hospitalist, and Dr. Brothers, Gastroenterology, from [place]. Accepted in transfer for pt to be further evaluated for elevated LFTs and Bilirubin Diagnostic Imaging Diagonstic Imaging: Ultrasound Plain Films/CT/US/NM/MRI: abdomen Comments [facility], [place] NAME: WOO HO[facility] REC#: [id number] PT STATUS: REG CLI : 1940 PHYSICIAN: BARB MORALES MD ADMIT DATE: 10/04/20/RAD FS Signed Date of Exam:10/04/20 US GALLBLADDER [id number] PROCEDURE: US Gallbladder. TECHNIQUE: Multiple Real-time grayscale images were obtained over the right upper quadrant in various projections. INDICATION: Right upper quadrant abdominal pain. FINDINGS: The liver measures 17 cm in length without evidence of focal abnormality. There are numerous shadowing stones within the lumen of the gallbladder. There is no obvious gallbladder wall thickening or pericholecystic fluid. The common bile duct reaches 0.6 cm in diameter. This is likely within normal limits. The pancreas is largely obscured by overlying bowel. No abdominal aortic, inferior vena caval, or right renal abnormality is identified. There is no evidence of free fluid. IMPRESSION: Cholecystolithiasis without other evidence of acute abnormality in the abdomen. Dictated by: Dictated on workstation # [id number] Dict: 10/04/20 1501 Trans: 10/04/20 1604 [id number] Interpreted by: ANTHONY HONEYCUTT MD Electronically signed by: ANTHONY HONEYCUTT MD 10/04/20 1604 Diagonstic Imaging: CT Plain Films/CT/US/NM/MRI: abdomen, pelvis Comments [facility] [place] [place] NAME: WOO [facility] REC#: [id number] PT STATUS: REG ER : 1940 PHYSICIAN: BARB MORALES MD ADMIT DATE: 10/03/20/ER FS Signed Date of Exam:10/03/20 CT ABDOMEN/PELVIS WO PROCEDURE: CT abdomen and pelvis without contrast. TECHNIQUE: Multiple contiguous axial images were obtained through the abdomen and pelvis without the use of intravenous contrast. Auto Exposure Controls were utilized during the CT exam to meet ALARA standards for radiation dose reduction. DATE: October 03, 2020. COMPARISON: CT abdomen and pelvis August 24, 2019. INDICATION: 80-year-old male, right upper quadrant abdominal pain. FINDINGS: There are limitations for evaluation of the abdominal organs, neoplastic processes, abscess, and limited evaluation of the vasculature relating to the lack of intravenous contrast. There are peripheral reticular lung opacities consistent with findings of interstitial lung disease. There is no peripheral honeycombing. There is no additional consolidation in the imaged lung bases. The heart is not enlarged. There is no pericardial effusion. The liver is unremarkable in size and contour. There is cholelithiasis without evidence of acute cholecystitis. No biliary ductal dilation. The main pancreatic duct is not grossly dilated. Limited noncontrast evaluation of the pancreatic parenchyma is unremarkable. The spleen is normal in size. The adrenal glands are unremarkable. There is a 3 mm nonobstructing right renal stone on axial image 32. There is 2 mm nonobstructing left renal stone on axial image 33. Urinary collecting systems are not distended. There is no identified ureteral stone. Urinary bladder is unremarkable. The intestinal tract is not distended. There is no evidence of acute appendicitis. There is no free intraperitoneal air. There is no drainable fluid collection. There is no free pelvic fluid. There are atherosclerotic calcifications. There is no identified abnormally enlarged lymph node in the abdomen or pelvis meeting CT size criteria for adenopathy. There are multilevel degenerative changes of the spine. There is no identified acute bony abnormality. IMPRESSION: CT ABDOMEN AND PELVIS. 1. Cholelithiasis without evidence of acute cholecystitis. No biliary ductal dilation. 2. Findings of interstitial lung disease without identified acute cardiopulmonary abnormality. 3. Nonobstructing renal stones without ureteral stone or hydronephrosis. 4. No identified acute abnormality in the abdomen or pelvis. Dictated by: Dictated on workstation # [id number] Dict: 10/03/202117 Trans: 10/03/202133 [facility] [id number] Interpreted by: THAIS CHRISTIANSON MD Electronically signed by: THAIS CHRISTIANSON MD 10/03/202133 Departure Impression Primary Impression: Acute cholangitis Additional Impressions: Cholelithiasis Qualified Codes: K80.20 - Calculus of gallbladder without cholecystitis without obstruction Elevated LFTs Disposition: [facility] Condition: Stable Transfer Transfer Reason: Exceeds level of care (MRCP/ERCP and GI Specialist for consult) Time Spoke to Accepting Phy: 17:18 Transfer Progress Notes d/w Dr. Ceja, Hospitalist, and Dr. Brothers, Gastroenterology. They accepted pt for transfer to [facility] for further work up and evaluation of elevated LFTs and Bilirubin. Transfer Facility: [place], [place] Method of Transfer: EMS Departure-Patient Inst. Referrals: SARAH MURRY MD (PCP/Family) Primary Care Physician Images Torso/Trunk 1 - Tenderness (when taking a deep breath he has tenderness with deep palpation. Otherwise he describes only referred pain to right shoulder area) YSABEL WILSON MD Oct 04, 2020 16:59
[2020-10-04 18:14] VITALS: BP 145/73
== END 2020-10-04 18:34 | disposition short-term general hospital (02) ==
LOC: EDUNIT# 16:30 → ER FS 16:32
DX: R79.89 Other specified abnormal findings of blood chemistry (principal); K80.20 Calculus of gallbladder without cholecystitis without obstruction; K83.09 Other cholangitis; M25.511 Pain in right shoulder; I10 Essential (primary) hypertension; Z88.1 Allergy status to other antibiotic agents; Z88.2 Allergy status to sulfonamides; Z88.8 Allergy status to other drugs, medicaments and biological substances; Z91.041 Radiographic dye allergy status; Z85.828 Personal history of other malignant neoplasm of skin
CPT/HCPCS: 83605

== ENCOUNTER → 2020-10-04 | Outpatient (CLI) | payer MEDICARE, OTHER ==
--- NOTE | 2020-10-04 15:19 | Diagnostic Imaging Report ---
PROCEDURE: US Gallbladder. TECHNIQUE: Multiple Real-time grayscale images were obtained over the right upper quadrant in various projections. INDICATION: Right upper quadrant abdominal pain. FINDINGS: The liver measures 17 cm in length without evidence of focal abnormality. There are numerous shadowing stones within the lumen of the gallbladder. There is no obvious gallbladder wall thickening or pericholecystic fluid. The common bile duct reaches 0.6 cm in diameter. This is likely within normal limits. The pancreas is largely obscured by overlying bowel. No abdominal aortic, inferior vena caval, or right renal abnormality is identified. There is no evidence of free fluid. IMPRESSION: Cholecystolithiasis without other evidence of acute abnormality in the abdomen. Dictated by: Dictated on workstation # [id number]
[2020-10-04 16:05] LABS: BASOPHILS % (AUTO) 0 % (0-10); EOSINOPHILS % (AUTO) 1 % (0-10); HEMATOCRIT 48 % (40-54); HEMOGLOBIN 16.1 G/DL (13.3-17.7); LYMPHOCYTES % (AUTO) 13 % (12-44); MEAN CORPUSCULAR HEMOGLOBIN 30 PG (25-34); MEAN CORPUSCULAR HGB CONC 34 G/DL (32-36); MEAN CORPUSCULAR VOLUME 91 FL (80-99); MEAN PLATELET VOLUME 10.3 FL (7.4-10.4); MONOCYTES # (AUTO) 0.7 X 10^3 (0.0-1.0); MONOCYTES % (AUTO) 10 % (0-12); NEUTROPHILS # (AUTO) 5.7 X 10^3 (1.8-7.8); NEUTROPHILS % (AUTO) 76 % (42-75); PLATELET COUNT 161 10^3/uL (130-400); WHITE BLOOD COUNT 7.5 10^3/uL (4.3-11.0)
[2020-10-04 16:10] LABS: CARBON DIOXIDE 22 MMOL/L (21-32); CHLORIDE 103 MMOL/L (98-107); POTASSIUM 4.2 MMOL/L (3.6-5.0); SODIUM 138 MMOL/L (135-145)
[2020-10-04 16:12] LABS: BUN/CREATININE RATIO 19; CREATININE SERUM 1.05 MG/DL (0.60-1.30); GFR ESTIMATED > 60; GLUCOSE 102 MG/DL (70-105)
[2020-10-04 16:13] LABS: ALANINE AMINOTRANSFERASE 148 U/L (0-55); ALBUMIN 4.2 GM/DL (3.2-4.5); ALKALINE PHOSPHATASE 207 U/L (40-136); CALCIUM 9.3 MG/DL (8.5-10.1); TOTAL PROTEIN 7.6 GM/DL (6.4-8.2)
== END ==
LOC: RAD FS 14:02
PROVIDERS: ATTEND Surgery
DX: K80.20 Calculus of gallbladder without cholecystitis without obstruction (principal); R17 Unspecified jaundice
CPT/HCPCS: 36415; 76705; 80053; 85025

== ENCOUNTER 2021-05-29 14:48 | Inpatient (IN) | payer MEDICARE, OTHER ==
[~2021-05-29] VITALS: Ht 170.2 cm; Wt 93.4 kg
[2021-05-29 15:07] LABS: BASOPHILS % (AUTO) 0 % (0-10); EOSINOPHILS # (AUTO) 0.1 10^3/uL (0.0-0.3); EOSINOPHILS % (AUTO) 1 % (0-10); HEMATOCRIT 51 % (40-54); HEMOGLOBIN 17.4 g/dL (13.3-17.7); LYMPHOCYTES # (AUTO) 2.5 X 10^3 (1.0-4.0); LYMPHOCYTES % (AUTO) 27 % (12-44); MEAN CORPUSCULAR HEMOGLOBIN 31 pg (25-34); MEAN CORPUSCULAR HGB CONC 34 g/dL (32-36); MEAN CORPUSCULAR VOLUME 92 fL (80-99); MEAN PLATELET VOLUME 10.1 fL (9.0-12.2); MONOCYTES # (AUTO) 0.9 X 10^3 (0.0-1.0); MONOCYTES % (AUTO) 10 % (0-12); NEUTROPHILS # (AUTO) 5.6 X 10^3 (1.8-7.8); NEUTROPHILS % (AUTO) 61 % (42-75); PLATELET COUNT 224 10^3/uL (130-400); WHITE BLOOD COUNT 9.2 10^3/uL (4.3-11.0)
[2021-05-29 15:22] LABS: AMORPHOUS SEDIMENT,UR LARGE AMOR URATES /LPF; BACTERIA,URINE NEGATIVE /HPF; BILIRUBIN,URINE NEGATIVE (NEGATIVE); CLARITY,URINE CLOUDY; COLOR,URINE YELLOW; GLUCOSE, URINE (UA) NEGATIVE (NEGATIVE); KETONES,URINE NEGATIVE (NEGATIVE); LEUKOCYTE ESTERASE ,URINE NEGATIVE (NEGATIVE); NITRITE,URINE NEGATIVE (NEGATIVE); PH,URINE 8.5 (5-9); PROTEIN,URINE TRACE (NEGATIVE)
[2021-05-29 15:23] LABS: ALBUMIN 4.3 GM/DL (3.2-4.5); CALCIUM 9.8 MG/DL (8.5-10.1); CREATININE SERUM 0.93 MG/DL (0.60-1.30); POTASSIUM 3.4 MMOL/L (3.6-5.0); TOTAL PROTEIN 7.9 GM/DL (6.4-8.2)
--- NOTE | 2021-05-29 16:02 | Diagnostic Imaging Report ---
PROCEDURE: CT abdomen and pelvis without contrast. TECHNIQUE: Multiple contiguous axial images were obtained through the abdomen and pelvis without the use of intravenous contrast. Auto Exposure Controls were utilized during the CT exam to meet ALARA standards for radiation dose reduction. INDICATION: Abdominal pain, vomiting, diarrhea. COMPARISON: 10/03/2020. FINDINGS: Calcified granuloma within the left lower lobe. Mild bibasilar scarring and/or fibrosis within the lung bases. The unenhanced liver and spleen are unremarkable. The adrenal glands are unremarkable. The unenhanced pancreas is unremarkable. Layering sludge and/or stones within the gallbladder without adjacent inflammatory stranding. Tiny bilateral nonobstructing renal calculi. The bilateral kidneys are otherwise unremarkable. Advanced vascular calcifications are within the abdominal aorta and its branch vessels without aneurysmal dilatation of the abdominal aorta. The urinary bladder is prominently decompressed, but otherwise unremarkable. The colon is predominantly decompressed. The small bowel is dilated, with some loops of small bowel measuring over 5 cm in transverse dimension. Potential transition point with associated distortion of the bowel is identified within the mid abdomen just to the right of midline. No pneumatosis. No significant adenopathy, free air or free fluid in the abdomen or pelvis. Scattered osseous degenerative changes without acute osseous abnormality. Scattered Schmorl's nodes are present. Grade 1 anterolisthesis of L5 on S1, favored to be degenerative in nature. IMPRESSION: 1. Findings concerning for a relatively high-grade small bowel obstruction. Suggestion of a transition point within the midline abdomen with associated distortion. Therefore, this could relate to underlying adhesions. 2. Cholelithiasis. 3. Grade 1 anterolisthesis of L5 on S1, favored to be degenerative in nature. This is associated with advanced degenerative changes throughout the spine. 4. Additional findings as above. Dictated by: Dictated on workstation # [id number]
--- NOTE | 2021-05-29 16:38 | ED General ---
General Chief Complaint: Abdominal/GI Problems Stated Complaint: ABD PAIN Nursing Triage Note: PT AMBULATE TO ROOM FS06 WITH C/O ABD PAIN X2 DAYS. PT REPORTS HE HAS NOT BEEN EATING. Source of Information: Patient History of Present Illness Date Seen by Provider: May 29, 2021 Time Seen by Provider: 14:45 Initial Comments Patient is an 81-year-old male who presents with abdominal pain nausea vomiting and diarrhea symptoms began yesterday. Abdominal pain is sharp periumbilical. Patient also reports increased abdominal distention and rashes. Denies chest pain palpitation shortness of breath fever. No chills, sweats. No flank pain. No urinary frequency urgency or burning. No prior abdominal surgery. Timing/Duration: 1-3 Hours Severity: Moderate Modifying Factors: improves with Other Associated Systoms: Other Allergies and Home Medications Allergies Coded Allergies: Iodinated Contrast Media (Unverified Allergy, Unknown, 08/24/19) Sulfa (Sulfonamide Antibiotics) (Unverified Allergy, Unknown, 08/24/19) alfuzosin HCl (Unverified Allergy, Unknown, 08/24/19) celecoxib (Unverified Allergy, Unknown, 08/24/19) levofloxacin (Verified Allergy, Unknown, 08/24/19) venom-wasp (Verified Allergy, Unknown, 08/24/19) Patient Home Medication List Home Medication List Reviewed: Yes Allopurinol (Zyloprim) 300 Mg Tab, 300 MG PO HS, (Reported) Entered as Reported by: ASAEL ALVAREZ on 05/21/12 1430 Atenolol (Tenormin) 50 Mg Tablet, 50 MG PO DAILY, (Reported) Entered as Reported by: ASAEL ALVAREZ on 05/21/12 1430 Furosemide (Furosemide) 40 Mg Tablet, 1 EACH PO DAILY, (Reported) Entered as Reported by: ASAEL ALVAREZ on 05/21/12 1430 Gabapentin (Neurontin) 100 Mg Cap, 200 MG PO HS, (Reported) Entered as Reported by: ASAEL ALVAREZ on 05/21/12 1430 Lisinopril (Prinivil) 20 Mg Tablet, 20 MG PO DAILY, (Reported) Entered as Reported by: ASAEL ALVAREZ on 05/21/12 1430 Oxycodone Hcl/Acetaminophen (Percocet 10-650 Mg Tablet) 1 Each Tablet, 1 EACH PO Q6H PRN, (Reported) Entered as Reported by: DULCE CAMERON on 05/23/12 1017 Tamsulosin Hcl (Flomax) 0.4 Mg Cap, 0.4 MG PO DAILY, (Reported) Entered as Reported by: DULCE CAMERON on 05/23/12 1015 Review of Systems Review of Systems Constitutional: see HPI EENTM: see HPI Respiratory: see HPI Cardiovascular: see HPI Gastrointestinal: see HPI Genitourinary: see HPI Musculoskeletal: see HPI Skin: see HPI Psychiatric/Neurological: See HPI Hematologic/Lymphatic: See HPI Immunological/Allergic: see HPI All Other Systems Reviewed Negative Unless Noted: Yes Past Rwonvgg-Gjlvmp-Xbjivw Hx Patient Social History Tobacco Use?: Yes Smoking Status: Never a Smoker Smokeless Tobacco Frequency: Never a User Use of E-Cig and/or Vaping Sai: Never a User Substance use?: No Alcohol Use?: No Pt feels they are or have been: No Immunizations Up To Date Tetanus Booster (TDap): Unknown First/Initial COVID19 Vaccinat: 09/2020 Second COVID19 Vaccination Maged: 10/2020 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 Seasonal Allergies Seasonal Allergies: No Past Medical History Surgeries: No Respiratory: Yes Sleep Apnea Cardiac: Yes (Proxsymal Atrial Tachycardia) Hypertension Neurological: No Genitourinary: Yes Benign Prostatic Hyperpl Gastrointestinal: No Musculoskeletal: Yes (GOUT) Endocrine: Yes Diabetes, Non-Insulin dep HEENT: No Cancer: Yes Skin Psychosocial: No Integumentary: No Blood Disorders: No Physical Exam Vital Signs Vital Signs - First Documented 05/29/21 14:50 Temp 36.4 Pulse 71 Resp 17 B/P (MAP) 159/73 (101) O2 Delivery Room Air Capillary Refill : Less Than 3 Seconds Height, Weight, BMI Height: 5'9.00" Weight: 225lbs. 0.0oz. 102.172102na; 33.00 BMI Method: General Appearance: No Apparent Distress, Other (Pale, fatigued) Eyes: Bilateral Eye Normal Inspection, Bilateral Eye PERRL, Bilateral Eye EOMI HEENT: PERRL/EOMI, Normal ENT Inspection, Pharynx Normal Neck: Full Range of Motion, Normal Inspection, Non Tender, Supple Respiratory: Chest Non Tender, Lungs Clear, Normal Breath Sounds Cardiovascular: Regular Rate, Rhythm, No Edema Gastrointestinal: Non Tender, Soft Neurologic/Psychiatric: Alert, Oriented x3, No Motor/Sensory Deficits Focused Exam Sepsis Stage: Ruled Out Progress/Results/Core Measures Suspected Sepsis SIRS Temperature: Pulse: 71 Respiratory Rate: 17 Laboratory Tests 05/29/21 14:55: White Blood Count 9.2 Blood Pressure 159 /73 Mean: 101 Laboratory Tests 05/29/21 14:55: Creatinine 0.93, Platelet Count 224, Total Bilirubin 1.0 Results/Orders Lab Results Laboratory Tests Test 05/29/21 14:55 05/29/21 15:10 Range/Units White Blood Count 9.2 4.3-11.0 10^3/uL Red Blood Count 5.62 H 4.30-5.52 10^6/uL Hemoglobin 17.4 13.3-17.7 g/dL Hematocrit 51 40-54 % Mean Corpuscular Volume 92 80-99 fL Mean Corpuscular Hemoglobin 31 25-34 pg Mean Corpuscular Hemoglobin Concent 34 32-36 g/dL Red Cell Distribution Width 14.0 10.0-14.5 % Platelet Count 224 130-400 10^3/uL Mean Platelet Volume 10.1 9.0-12.2 fL Immature Granulocyte % (Auto) 0 % Neutrophils (%) (Auto) 61 42-75 % Lymphocytes (%) (Auto) 27 12-44 % Monocytes (%) (Auto) 10 0-12 % Eosinophils (%) (Auto) 1 0-10 % Basophils (%) (Auto) 0 0-10 % Neutrophils # (Auto) 5.6 1.8-7.8 X 10^3 Lymphocytes # (Auto) 2.5 1.0-4.0 X 10^3 Monocytes # (Auto) 0.9 0.0-1.0 X 10^3 Eosinophils # (Auto) 0.1 0.0-0.3 10^3/uL Basophils # (Auto) 0.0 0.0-0.1 10^3/uL Immature Granulocyte # (Auto) 0.0 0.0-0.1 10^3/uL Sodium Level 138 135-145 MMOL/L Potassium Level 3.4 L 3.6-5.0 MMOL/L Chloride Level 100 98-107 MMOL/L Carbon Dioxide Level 24 21-32 MMOL/L Anion Gap 14 5-14 MMOL/L Blood Urea Nitrogen 15 7-18 MG/DL Creatinine 0.93 0.60-1.30 MG/DL Estimat Glomerular Filtration Rate 78 BUN/Creatinine Ratio 16 Glucose Level 117 H 70-105 MG/DL Calcium Level 9.8 8.5-10.1 MG/DL Corrected Calcium 9.6 8.5-10.1 MG/DL Total Bilirubin 1.0 0.1-1.0 MG/DL Aspartate Amino Transf (AST/SGOT) 29 5-34 U/L Alanine Aminotransferase (ALT/SGPT) 18 0-55 U/L Alkaline Phosphatase 93 40-136 U/L Total Protein 7.9 6.4-8.2 GM/DL Albumin 4.3 3.2-4.5 GM/DL Urine Color YELLOW Urine Clarity CLOUDY Urine pH 8.5 5-9 Urine Specific [place] 1.015 L 1.016-1.022 Urine Protein TRACE H NEGATIVE Urine Glucose (UA) NEGATIVE NEGATIVE Urine Ketones NEGATIVE NEGATIVE Urine Nitrite NEGATIVE NEGATIVE Urine Bilirubin NEGATIVE NEGATIVE Urine Urobilinogen 0.2 < = 1.0 MG/DL Urine Leukocyte Esterase NEGATIVE NEGATIVE Urine RBC (Auto) NEGATIVE NEGATIVE Urine RBC NONE /HPF Urine WBC NONE /HPF Urine Squamous Epithelial Cells NONE /HPF Urine Crystals PRESENT H /LPF Urine Amorphous Sediment LARGE ANNE MARIE URATES H /LPF Urine Bacteria NEGATIVE /HPF Urine Casts NONE /LPF Urine Mucus LARGE H /LPF Urine Culture Indicated NO My Orders Orders - ANDREW JIANG DO Cbc With Automated Diff (05/29/21 14:57) Comprehensive Metabolic Panel (05/29/21 14:57) Urinalysis (05/29/21 14:57) Ct Abdomen/Pelvis Wo (05/29/21 15:27) Vital Signs/I&O 05/29/21 14:50 Temp 36.4 Pulse 71 Resp 17 B/P (MAP) 159/73 (101) O2 Delivery Room Air Capillary Refill : Less Than 3 Seconds Blood Pressure Mean: 101 Departure Communication (Admissions) CT abdomen pelvis, probable SBO Patient with abdominal pain nausea vomiting diarrhea with CT findings concerning for SBO. No vomiting in the ED. IV fluids given. Dr. Mcmanus to admit to [facility]. Dr. Alanis consulted. Impression Primary Impression: Abdominal wall pain Additional Impression: Vomiting and diarrhea Disposition: HOME, SELF-CARE Condition: Stable Admissions Decision to Admit Reason: Admit from ER (General) Decision to Admit/Date: May 29, 2021 Time/Decision to Admit Time: 16:45 Departure-Patient Inst. Decision time for Depature: 16:46 Referrals: SARAH MURRY MD (PCP/Family) Primary Care Physician Add. Discharge Instructions: All discharge instructions reviewed with patient and/or family. Voiced understanding. ANDREW JIANG DO May 29, 2021 16:38
[2021-05-29] MEDS ORDERED: morphine INJ 10 MG/ML 1ML (SYR OR VIAL) IVP STA (17:24)
[2021-05-29] MEDS ORDERED: PATIENT MAY USE OWN MEDS, ALL PO SCH (17:30)
[2021-05-29] MEDS ORDERED: HYOSCYAMINE 0.125 MG (LEVSIN) TAB PO PRN (17:30)
[2021-05-29] MEDS ORDERED: ACETAMINOPHEN 650 MG SUPP (TYLENOL) PR PRN (17:30)
[2021-05-29] MEDS ORDERED: ONDANSETRON 4 MG/2 ML (SDV) Z0FRAN IVP ONE (17:30)
[2021-05-29] MEDS ORDERED: LORazepam INJ 2 MG/ML (ATIVAN) VIAL IVP PRN (17:30)
[2021-05-29] MEDS ORDERED: morphine INJ 10 MG/ML 1ML (SYR OR VIAL) IVP PRN (17:30)
[2021-05-29] MEDS ORDERED: METOCLOPRAMIDE INJ 10 MG/2 ML (REGLAN) IVP PRN (18:00)
[2021-05-29] MEDS ORDERED: ONDANSETRON 4 MG/2 ML (SDV) Z0FRAN IVP PRN (18:00)
[2021-05-29 18:20] VITALS: BP 149/83
--- NOTE | 2021-05-29 18:40 | CONSULTATION REPORT ---
DATE OF SERVICE: ATTENDING PRIMARY CARE PHYSICIAN: Dr. Escalante. ADMITTING PHYSICIAN: Dr. Mcmanus. HISTORY OF PRESENT PHYSICIAN: The patient is an 81-year-old male who presented to [facility] with crampy abdominal pain, slight distention as well as an episode of nausea and vomiting. He also reports that he did have an episode of diarrhea earlier today. He does not report any red blood per rectum nor any dark tarry stools. He also does not report any hematemesis, no coffee-ground emesis. He states that the pain is more in the periumbilical region. Upon further questioning, he reports that he has not been hungry lately and some foods have also caused some mild nausea and abdominal distention, however, no vomiting. A CT scan was performed, which did show dilated loops of small bowel as well as a possible area of transition. He does not report any recent inadvertent weight loss as well as no fever, no chills. PAST MEDICAL HISTORY: Hypertension, degenerative joint disease, paroxysmal atrial tachycardia, benign prostatic hypertrophy, gout, non-insulin dependent diabetes and sleep apnea. PAST SURGICAL HISTORY: None known. ALLERGIES: IODINATED CONTRAST MEDIA, SULFA, ALFUZOSIN, CELECOXIB, LEVOFLOXACIN. MEDICATIONS: Allopurinol 300 mg daily, atenolol 50 mg daily, furosemide 40 mg daily, gabapentin 200 mg daily, lisinopril 20 mg daily, oxycodone 10/650 mg q.6 hours p.r.n., tamsulosin 0.4 mg daily. SOCIAL HISTORY: Negative smoke, negative alcohol. FAMILY HISTORY: Noncontributory. VITAL SIGNS: Temperature 36.4, blood pressure 159/73, pulse 71, respirations 17. REVIEW OF SYSTEMS: This is a well-nourished male, currently guarded secondary to crampy abdominal pain. He is not experiencing any shortness of breath or difficulty breathing. No chest pain, palpitations, diaphoresis. He did have an episode of nausea and vomiting earlier today as well as diarrhea. No red blood per rectum, no dark tarry stools as well as no hematemesis, no coffee-ground emesis. He also does report that he has lost his appetite on an intermittent basis in the past few weeks. No fever, chills, no recent inadvertent weight loss. All other review of systems negative. PHYSICAL EXAMINATION: CHEST: Few scattered rales bilaterally. HEART: Regular, no murmurs. EXTREMITIES: +1/3 bilateral lower extremity edema, negative Homans sign. HEENT: No scleral icterus. NECK: No cervical lymphadenopathy. ABDOMEN: Soft, slightly distended. There is mild to moderate discomfort in the periumbilical region as well as in the right upper abdominal quadrant upon deep palpation. No peritoneal signs. No hernias. SKIN: Warm, dry. LABORATORY DATA: WBC 9.2, hemoglobin 17.4, hematocrit 51, platelets 224. BUN 15, creatinine 0.93. Liver function enzymes are normal. ASSESSMENT AND PLAN: An 81-year-old male with partial small-bowel obstruction with associated nausea and vomiting; however, he has also had some issues with intermittent anorexia, nausea, vomiting and abdominal bloating after eating meals and there was also cholelithiasis noted on the CT scan. We will proceed with conservative management for now with bowel rest, IV hydration as well as antinausea and antipain medication as necessary. If he continues to be symptomatic, he may benefit from a diagnostic laparoscopy as well as lysis of adhesions if this is the cause of the partial small-bowel obstruction as well as laparoscopic cholecystectomy in which case we would schedule. Job ID: [id number] DocumentID: [id number] Dictated Date: 05/29/2021 17:47:05 Source Water Protection Specialist Date: 05/29/2021 18:40:04 Dictated By: ARCELIA PUTNAM MD
[2021-05-29 20:00] VITALS: BP 145/82
[2021-05-29] MEDS: NS IV 1000 ML 1,000 ML IV SCH (20:09)
[2021-05-29] MEDS ORDERED: morphine INJ 4 MG/ML 1 ML (VIAL/SYRINGE) IVP PRN (22:15)
[2021-05-30] VITALS: BP 154/75
[2021-05-30 04:00] VITALS: BP 155/77
[2021-05-30] MEDS: NS IV 1000 ML 1,000 ML IV SCH ×3 (05:27→17:19)
[2021-05-30 06:56] LABS: BASOPHILS % (AUTO) 1 % (0-10); EOSINOPHILS # (AUTO) 0.2 10^3/uL (0.0-0.3); EOSINOPHILS % (AUTO) 2 % (0-10); HEMATOCRIT 50 % (40-54); HEMOGLOBIN 16.3 g/dL (13.3-17.7); LYMPHOCYTES # (AUTO) 1.7 10^3/uL (1.0-4.0); LYMPHOCYTES % (AUTO) 21 % (12-44); MEAN CORPUSCULAR HEMOGLOBIN 31 pg (25-34); MEAN CORPUSCULAR HGB CONC 33 g/dL (32-36); MEAN CORPUSCULAR VOLUME 95 fL (80-99); MEAN PLATELET VOLUME 10.5 fL (9.0-12.2); MONOCYTES # (AUTO) 0.9 10^3/uL (0.0-1.0); MONOCYTES % (AUTO) 11 % (0-12); NEUTROPHILS # (AUTO) 5.3 10^3/uL (1.8-7.8); NEUTROPHILS % (AUTO) 65 % (42-75); PLATELET COUNT 183 10^3/uL (130-400); WHITE BLOOD COUNT 8.1 10^3/uL (4.3-11.0)
[2021-05-30 06:57] LABS: ALBUMIN 3.6 GM/DL (3.2-4.5); BILIRUBIN,TOTAL 1.1 MG/DL (0.1-1.0); CALCIUM 8.8 MG/DL (8.5-10.1); CREATININE SERUM 0.83 MG/DL (0.60-1.30); POTASSIUM 3.4 MMOL/L (3.6-5.0); TOTAL PROTEIN 6.8 GM/DL (6.4-8.2)
[2021-05-30] MEDS: PANTOPRAZOLE 40 MG (PROTONIX) VIAL IV SCH (07:53)
[2021-05-30 08:00] VITALS: BP 157/87
[2021-05-30] MEDS: oxyCODONE/APAP 10/325MG (PERCOCET 10) TABLET PO PRN (10:25)
[2021-05-30 11:46] VITALS: BP 179/84
--- NOTE | 2021-05-30 13:57 | History & Physical ---
HPI History of Present Illness: 81 yo M presented with worsening abdominal pain, N/V with CT findings consistent with partial SBO. Patient states that he started having increasing in pain on Sunday and has not eaten much since then. He has still been trying to sip on water and tried to have a cup of oatmeal yesterday which is threw up. States that he has not had an episode like this previously. Denies any abdominal surgeries. Source: patient, spouse Exam Limitations: no limitations Date seen by provider: May 30, 2021 Time Seen by Provider: 12:00 Attending Physician Dorita Hampton MD PCP Sarah Murry MD Consult Date of Admission May 29, 2021 at 18:22 Home Medications Home Medications Reviewed patient Home Medication Reconciliation performed by pharmacy medication reconciliations apartment maintenance technician and/or nursing. Patients Allergies have been reviewed. Allergies Coded Allergies: Iodinated Contrast Media (Unverified Allergy, Unknown, 08/24/19) Sulfa (Sulfonamide Antibiotics) (Unverified Allergy, Unknown, 08/24/19) alfuzosin HCl (Unverified Allergy, Unknown, 08/24/19) celecoxib (Unverified Allergy, Unknown, 08/24/19) levofloxacin (Verified Allergy, Unknown, 08/24/19) venom-wasp (Verified Allergy, Unknown, 08/24/19) QLC-Ntojoe-Ajkiwk Hx Patient Social History Smoking Status: Former Smoker 2nd Hand Smoke Exposure: No Recent Hopitalizations: No Alcohol Use?: No Have you traveled recently?: No Immunizations Up To Date Tetanus Booster (TDap): Unknown Date of Pneumonia Vaccine: Apr 22, 2008 Date of Influenza Vaccine: May 05, 2021 Past Medical History HTN BPH Family Medical History Significant Family History: No Pertinent Family Hx Review of Systems ([facility]) Constitutional: No chills, No fever; weakness EENTM: no symptoms reported; No mouth pain, No nose congestion, No throat pain Respiratory: no symptoms reported; No cough, No dyspnea on exertion, No short of breath Cardiovascular: no symptoms reported; No chest pain, No edema, No palpitations Gastrointestinal: abdominal pain, loss of appetite, nausea, vomiting Genitourinary: no symptoms reported; No dysuria, No frequency, No hematuria Musculoskeletal: no symptoms reported; No back pain, No joint pain, No muscle pain Skin: no symptoms reported; No lesions, No rash Psychiatric/Neurological: Weakness Reviewed Test Results Reviewed Test Results Lab Laboratory Tests Test 05/29/21 14:55 05/29/21 15:10 05/30/21 06:03 Range/Units White Blood Count 9.2 8.1 4.3-11.0 10^3/uL Red Blood Count 5.62 H 5.28 4.30-5.52 10^6/uL Hemoglobin 17.4 16.3 13.3-17.7 g/dL Hematocrit 51 50 40-54 % Mean Corpuscular Volume 92 95 80-99 fL Mean Corpuscular Hemoglobin 31 31 25-34 pg Mean Corpuscular Hemoglobin Concent 34 33 32-36 g/dL Red Cell Distribution Width 14.0 14.1 10.0-14.5 % Platelet Count 224 183 130-400 10^3/uL Mean Platelet Volume 10.1 10.5 9.0-12.2 fL Immature Granulocyte % (Auto) 0 0 % Neutrophils (%) (Auto) 61 65 42-75 % Lymphocytes (%) (Auto) 27 21 12-44 % Monocytes (%) (Auto) 10 11 0-12 % Eosinophils (%) (Auto) 1 2 0-10 % Basophils (%) (Auto) 0 1 0-10 % Neutrophils # (Auto) 5.6 5.3 1.8-7.8 10^3/uL Lymphocytes # (Auto) 2.5 1.7 1.0-4.0 10^3/uL Monocytes # (Auto) 0.9 0.9 0.0-1.0 10^3/uL Eosinophils # (Auto) 0.1 0.2 0.0-0.3 10^3/uL Basophils # (Auto) 0.0 0.0 0.0-0.1 10^3/uL Immature Granulocyte # (Auto) 0.0 0.0 0.0-0.1 10^3/uL Sodium Level 138 140 135-145 MMOL/L Potassium Level 3.4 L 3.4 L 3.6-5.0 MMOL/L Chloride Level 100 107 98-107 MMOL/L Carbon Dioxide Level 24 19 L 21-32 MMOL/L Anion Gap 14 14 5-14 MMOL/L Blood Urea Nitrogen 15 13 7-18 MG/DL Creatinine 0.93 0.83 0.60-1.30 MG/DL Estimat Glomerular Filtration Rate 78 89 BUN/Creatinine Ratio 16 16 Glucose Level 117 H 106 H 70-105 MG/DL Calcium Level 9.8 8.8 8.5-10.1 MG/DL Corrected Calcium 9.6 9.1 8.5-10.1 MG/DL Total Bilirubin 1.0 1.1 H 0.1-1.0 MG/DL Aspartate Amino Transf (AST/SGOT) 29 26 5-34 U/L Alanine Aminotransferase (ALT/SGPT) 18 16 0-55 U/L Alkaline Phosphatase 93 64 40-136 U/L Total Protein 7.9 6.8 6.4-8.2 GM/DL Albumin 4.3 3.6 3.2-4.5 GM/DL Urine Color YELLOW Urine Clarity CLOUDY Urine pH 8.5 5-9 Urine Specific [place] 1.015 L 1.016-1.022 Urine Protein TRACE H NEGATIVE Urine Glucose (UA) NEGATIVE NEGATIVE Urine Ketones NEGATIVE NEGATIVE Urine Nitrite NEGATIVE NEGATIVE Urine Bilirubin NEGATIVE NEGATIVE Urine Urobilinogen 0.2 < = 1.0 MG/DL Urine Leukocyte Esterase NEGATIVE NEGATIVE Urine RBC (Auto) NEGATIVE NEGATIVE Urine RBC NONE /HPF Urine WBC NONE /HPF Urine Squamous Epithelial Cells NONE /HPF Urine Crystals PRESENT H /LPF Urine Amorphous Sediment LARGE ANNE MARIE URATES H /LPF Urine Bacteria NEGATIVE /HPF Urine Casts NONE /LPF Urine Mucus LARGE H /LPF Urine Culture Indicated NO Physical Exam-([facility]) Physical Exam Vital Signs VS - Last 72 Hours, by Label 05/29/21 05/29/21 05/29/21 05/29/21 14:50 17:32 18:20 18:56 Temp 36.4 36.2 Pulse 71 82 66 Resp 17 18 20 B/P (MAP) 159/73 (101) 144/79 149/83 (105) Pulse Ox 98 95 O2 Delivery Room Air Room Air Room Air Room Air 05/29/21 05/29/21 05/30/21 05/30/21 20:00 20:00 00:00 04:00 Temp 36.4 36.6 36.8 Pulse 64 69 65 Resp 20 20 18 B/P (MAP) 145/82 (103) 154/75 (101) 155/77 (103) Pulse Ox 94 92 92 O2 Delivery Room Air Room Air Room Air Room Air 05/30/21 05/30/21 05/30/21 08:00 08:00 11:46 Temp 36.8 37.3 Pulse 65 72 Resp 20 20 B/P (MAP) 157/87 (110) 179/84 (115) Pulse Ox 92 93 O2 Delivery Room Air Room Air Room Air Capillary Refill : Less Than 3 Seconds General Appearance: WD/WN, no apparent distress Neck: non-tender, full range of motion, supple Respiratory: chest non-tender, lungs clear, normal breath sounds, no respiratory distress, no accessory muscle use Cardiovascular: normal peripheral pulses, regular rate, rhythm, no murmur Gastrointestinal: soft; No guarding, No rebound; tenderness (Right lower quadrant), hernia (large midline hernia) Back: no CVA tenderness, no vertebral tenderness Extremities: normal range of motion, non-tender, no pedal edema, no calf tenderness, normal capillary refill Neurologic/Psychiatric: chicken and fish cleaner II-XII nml as tested, no motor/sensory deficits, alert, normal mood/affect, oriented x 3 Skin: normal color, warm/dry Lymphatic: no adenopathy Assessment/Plan Assessment/Plan Admission Status: Inpatient Order (span 2 midnights) Reason for Inpatient Admission: Close monitoring possible need for surgery (1) SBO (small bowel obstruction) Status: Acute Assessment & Plan: - Partial SBO on CT, Dr Pedersen consulted, Bowel rest and IVFs, encouraged ambulation (2) Abdominal wall pain Status: Acute (3) Cholelithiasis Status: Acute Assessment & Plan: - CT showed gall stones, will continue to monitor (4) HTN (hypertension) Status: Chronic Assessment & Plan: - Continue home meds Qualifiers: Qualified Codes: I10 - Essential (primary) hypertension (5) BPH (benign prostatic hyperplasia) Status: Chronic Assessment & Plan: - Continue home meds (6) DVT prophylaxis Status: Acute Assessment & Plan: - SCDs, due to possible surgery needs Copy Copies To 1: SARAH MURRY MD, HOLLY R MD May 30, 2021 13:57
[2021-05-30] MEDS ORDERED: MAGN400T39 PO (14:35)
[2021-05-30] MEDS ORDERED: FURO40TA4 PO (14:35)
[2021-05-30] MEDS ORDERED: FLEC100T PO (14:35)
[2021-05-30] MEDS ORDERED: MTP25TSR PO (14:35)
[2021-05-30] MEDS ORDERED: POTA20TA15 PO (14:35)
[2021-05-30] MEDS ORDERED: TMSL.4C PO (14:35)
[2021-05-30] MEDS ORDERED: ALLO300T2 PO (14:35)
[2021-05-30 16:00] VITALS: BP 133/84
--- NOTE | 2021-05-30 18:22 | Progress Note ---
Standard Progress Note Progress Notes/Assess & Plan Date Seen by a Provider: May 30, 2021 Time Seen by a Provider: 18:00 Progress/Assessment & Plan sx chronic calculous cholecystitis. f/u 2 weeks to schedule OP lap ARCELIA Goss MD May 30, 2021 18:22
[2021-05-30 19:54] VITALS: BP 175/84
[2021-05-30] MEDS ORDERED: ALLOPURINOL 300 MG (ZYLOPRIM) TAB PO SCH (21:00)
[2021-05-30] MEDS ORDERED: GABAPENTIN 100 MG (NEURONTIN) CAP PO SCH (21:00)
[2021-05-30] MEDS: FLECAINIDE 100 MG (TAMBOCOR) TAB PO SCH (22:57)
[2021-05-31] MEDS: oxyCODONE/APAP 10/325MG (PERCOCET 10) TABLET PO PRN (04:08)
[2021-05-31 04:25] VITALS: BP 175/98
[2021-05-31 06:44] LABS: BASOPHILS % (AUTO) 0 % (0-10); EOSINOPHILS # (AUTO) 0.1 10^3/uL (0.0-0.3); EOSINOPHILS % (AUTO) 2 % (0-10); HEMATOCRIT 49 % (40-54); HEMOGLOBIN 16.2 g/dL (13.3-17.7); LYMPHOCYTES # (AUTO) 1.6 10^3/uL (1.0-4.0); LYMPHOCYTES % (AUTO) 22 % (12-44); MEAN CORPUSCULAR HEMOGLOBIN 31 pg (25-34); MEAN CORPUSCULAR HGB CONC 33 g/dL (32-36); MEAN CORPUSCULAR VOLUME 94 fL (80-99); MEAN PLATELET VOLUME 11.1 fL (9.0-12.2); MONOCYTES # (AUTO) 0.9 10^3/uL (0.0-1.0); MONOCYTES % (AUTO) 12 % (0-12); NEUTROPHILS # (AUTO) 4.6 10^3/uL (1.8-7.8); NEUTROPHILS % (AUTO) 63 % (42-75); PLATELET COUNT 187 10^3/uL (130-400); WHITE BLOOD COUNT 7.3 10^3/uL (4.3-11.0)
[2021-05-31 06:52] LABS: ALBUMIN 3.6 GM/DL (3.2-4.5); POTASSIUM 3.6 MMOL/L (3.6-5.0)
[2021-05-31 06:54] LABS: CALCIUM 8.5 MG/DL (8.5-10.1)
[2021-05-31 06:55] LABS: TOTAL PROTEIN 6.6 GM/DL (6.4-8.2)
[2021-05-31 06:57] LABS: BILIRUBIN,TOTAL 1.2 MG/DL (0.1-1.0)
[2021-05-31 06:58] LABS: CREATININE SERUM 0.74 MG/DL (0.60-1.30)
[2021-05-31 08:23] VITALS: BP 155/73
[2021-05-31] MEDS: NS IV 1000 ML 1,000 ML IV SCH (08:37)
[2021-05-31] MEDS: FLECAINIDE 100 MG (TAMBOCOR) TAB PO SCH (08:37)
[2021-05-31] MEDS: PANTOPRAZOLE 40 MG (PROTONIX) VIAL IV SCH (08:37)
[2021-05-31] MEDS ORDERED: lisINopril 20 MG (PRINIVIL) TABLET PO SCH (09:00)
[2021-05-31] MEDS ORDERED: ATENOLOL 50 MG (TENORMIN) TAB PO SCH (09:00)
[2021-05-31] MEDS ORDERED: FUROSEMIDE 40 MG (LASIX) TAB PO SCH (09:00)
[2021-05-31 12:11] VITALS: BP 187/87
[2021-05-31 12:27] VITALS: BP 150/80
--- NOTE | 2021-05-31 12:43 | Discharge Summary ---
Diagnosis/Chief Complaint Date of Admission May 29, 2021 at 18:22 Date of Discharge Discharge Diagnosis Problems/Diagnosis: (1) SBO (small bowel obstruction) Assessment & Plan: - Partial SBO on CT, Dr Pedersen consulted, Bowel rest and IVFs, encouraged ambulation Status: Acute (2) Abdominal wall pain Status: Acute (3) Cholelithiasis Assessment & Plan: - CT showed gall stones, will continue to monitor Status: Acute (4) HTN (hypertension) Assessment & Plan: - Continue home meds Qualifiers: Qualified Codes: I10 - Essential (primary) hypertension Status: Chronic (5) BPH (benign prostatic hyperplasia) Assessment & Plan: - Continue home meds Status: Chronic (6) DVT prophylaxis Assessment & Plan: - SCDs, due to possible surgery needs Status: Acute Chief Complaint/HPI Chief Complaint/HPI 81 yo M presented with worsening abdominal pain, N/V with CT findings consistent with partial SBO. Patient states that he started having increasing in pain on Sunday and has not eaten much since then. He has still been trying to sip on water and tried to have a cup of oatmeal yesterday which is threw up. States that he has not had an episode like this previously. Denies any abdominal surgeries. Discharge Summary-Simple/Stand Consultations Discharge Physical Examination Allergies: Coded Allergies: Iodinated Contrast Media (Unverified Allergy, Unknown, 08/24/19) Sulfa (Sulfonamide Antibiotics) (Unverified Allergy, Unknown, 08/24/19) alfuzosin HCl (Unverified Allergy, Unknown, 08/24/19) celecoxib (Unverified Allergy, Unknown, 08/24/19) levofloxacin (Verified Allergy, Unknown, 08/24/19) venom-wasp (Verified Allergy, Unknown, 08/24/19) Vitals & I&Os Vital Sign - Last 12Hours Date Time Temp Pulse Resp B/P (MAP) Pulse Ox O2 Delivery O2 Flow Rate FiO2 05/31/21 12:27 150/80 (103) 05/31/21 12:11 37.1 70 18 93 Room Air Intake and Output 05/31/21 00:00 Intake Total 600 ml Balance 600 ml Hospital Course See final discharge diagnosis. Discharge Instructions to patient/family Please see electronic discharge instructions given to patient. Discharge Medications Reviewed and agree with Discharge Medication list on patient's Discharge Instruction sheet HARRY VERAS MD May 31, 2021 12:43
[2021-05-31] MEDS ORDERED: PANT40TA52 PO (12:44)
--- NOTE | 2021-05-31 12:45 | Discharge Summary ---
Discharge [facility]-PSYCHIATRIC Reconcile Patient Problems Problems Reviewed?: Yes Discharge Medications New, Converted or Re-Newed RX: Transmitted to Pharmacy New Medications: Pantoprazole Sodium (Pantoprazole Sodium) 40 Mg Tablet.dr 40 MG PO DAILY, #30 TAB Continued Medications: Allopurinol (Allopurinol) 300 Mg Tablet 300 MG PO HS, TAB Flecainide Acetate (Flecainide Acetate) 100 Mg Tablet 100 MG PO Q12H, TAB Furosemide (Furosemide) 40 Mg Tablet 40 MG PO DAILY, TAB Magnesium Oxide (Magnesium) 400 Mg Tablet 400 MG PO DAILY, TAB Metoprolol Succinate (Metoprolol Succinate) 25 Mg Tab.er.24h 25 MG PO DAILY, TAB Potassium Chloride (Potassium Chloride) 20 Meq Tab.er.prt 20 MEQ PO DAILY, TAB Tamsulosin HCl (Flomax) 0.4 Mg Cap 0.4 MG PO HS, CAP Patient Instructions Goal/Follow Up Appt: f/u 1-[address] Escalante Activity & Diet Discharge Diet: Eat Small Frequent Meals, Low Residue Activity as Tolerated: Yes HARRY VERAS MD May 31, 2021 12:45
[2021-06-01] MEDS ORDERED: PANTOPRAZOLE 40 MG (PROTONIX) TAB PO SCH (09:00)
== END 2021-05-31 14:05 | disposition home or self-care (01) | DRG 389 ==
LOC: EDUNIT# 14:48 → ER FS 14:50 → 4TH 18:22
PROVIDERS: ADMIT Internal Medicine; ATTEND Family Medicine
DX: K56.600 Partial intestinal obstruction, unspecified as to cause (principal); K80.10 Calculus of gallbladder with chronic cholecystitis without obstruction; I47.1 Supraventricular tachycardia; I10 Essential (primary) hypertension; N40.0 Benign prostatic hyperplasia without lower urinary tract symptoms; M10.9 Gout, unspecified; Z79.899 Other long term (current) drug therapy; Z88.2 Allergy status to sulfonamides; Z88.1 Allergy status to other antibiotic agents; Z88.8 Allergy status to other drugs, medicaments and biological substances; Z87.891 Personal history of nicotine dependence; Z91.040 Latex allergy status; Z85.828 Personal history of other malignant neoplasm of skin
CPT/HCPCS: 36415; 74176; 80053; 81000; 85025

== ENCOUNTER 2022-03-05 12:56 | Emergency (ER) | payer MEDICARE, OTHER ==
[~2022-03-05] VITALS: Ht 170 cm; Wt 87.0 kg
[~2022-03-05 12:56] MED LIST changes: +ALLO300T2 PO; +FLEC100T PO; +MAGN400T39 PO; +MTP25TSR PO; +PANT40TA52 PO; +POTA-179 PO
[2022-03-05] MEDS ORDERED: morphine INJ 10 MG/ML 1ML (SYR OR VIAL) IVP STA (13:19)
[2022-03-05 13:24] LABS: BASOPHILS % (AUTO) 0 % (0-10); BILIRUBIN,URINE NEGATIVE (NEGATIVE); CLARITY,URINE CLEAR; COLOR,URINE YELLOW; EOSINOPHILS # (AUTO) 0.1 10^3/uL (0.0-0.3); EOSINOPHILS % (AUTO) 1 % (0-10); GLUCOSE, URINE (UA) NEGATIVE (NEGATIVE); HEMATOCRIT 46 % (40-54); HEMOGLOBIN 15.9 g/dL (13.3-17.7); KETONES,URINE NEGATIVE (NEGATIVE); LEUKOCYTE ESTERASE ,URINE NEGATIVE (NEGATIVE); LYMPHOCYTES # (AUTO) 2.2 10^3/uL (1.0-4.0); LYMPHOCYTES % (AUTO) 23 % (12-44); MEAN CORPUSCULAR HEMOGLOBIN 31 pg (25-34); MEAN CORPUSCULAR HGB CONC 35 g/dL (32-36); MEAN CORPUSCULAR VOLUME 90 fL (80-99); MEAN PLATELET VOLUME 10.2 fL (9.0-12.2); MONOCYTES # (AUTO) 0.8 10^3/uL (0.0-1.0); MONOCYTES % (AUTO) 8 % (0-12); NEUTROPHILS # (AUTO) 6.3 10^3/uL (1.8-7.8); NEUTROPHILS % (AUTO) 67 % (42-75); NITRITE,URINE NEGATIVE (NEGATIVE); PH,URINE 5.5 (5-9); PLATELET COUNT 188 10^3/uL (130-400); PROTEIN,URINE NEGATIVE (NEGATIVE); WHITE BLOOD COUNT 9.4 10^3/uL (4.3-11.0)
[2022-03-05 13:26] LABS: BACTERIA,URINE TRACE /HPF
[2022-03-05] MEDS ORDERED: NS IV 1000 ML 1,000 ML IV SCH (13:30)
[2022-03-05] MEDS ORDERED: ONDANSETRON 4 MG/2 ML (SDV) Z0FRAN IVP ONE ×2 (13:30→14:00)
[2022-03-05 13:37] LABS: ALBUMIN 4.2 GM/DL (3.2-4.5); CALCIUM 9.2 MG/DL (8.5-10.1); CREATININE SERUM 0.75 MG/DL (0.60-1.30); TOTAL PROTEIN 7.7 GM/DL (6.4-8.2)
[2022-03-05] MEDS ORDERED: fentaNYL INJ 100 MCG/2 ML AMP IVP ONE (14:00)
--- NOTE | 2022-03-05 14:04 | Diagnostic Imaging Report ---
EXAMINATION: CT abdomen and pelvis without contrast. TECHNIQUE: Multiple contiguous axial images were obtained through the abdomen and pelvis without the use of intravenous contrast. All CT scans use one or more of the following dose optimizing techniques: automated exposure control, MA and/or KvP adjustment based on patient size and exam type or iterative reconstruction. HISTORY: Abdominal pain COMPARISON: 05/29/2021 FINDINGS: Limited views of the lower thorax show reticular opacities suggestive of pulmonary fibrosis. The liver is normal without focal lesion. There is mild biliary ductal dilation. Stone in the distal common bile duct. Gallbladder contains stones. No wall thickening or pericholecystic fluid. Pancreas is normal. Spleen is normal. Adrenal glands are normal. There are small stones in both kidneys. No suspicious renal lesions. No ureteral stones. There is no hydronephrosis. Urinary bladder is normal. 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 Bowel is normal in caliber without obstruction or inflammation. No free fluid or air. No abdominal or pelvic lymphadenopathy. Aorta is normal in caliber without aneurysm. There are no suspicious osseus lesions. IMPRESSION: 1. Mildly dilated bile ducts with a small stone in the distal common bile duct. 2. Cholelithiasis without cholecystitis. Dictated by: Dictated on workstation # [id number]
[2022-03-05] MEDS ORDERED: KCL 20 MEQ TAB (K-DUR) PO ONE (14:15)
--- NOTE | 2022-03-05 14:47 | ED Abdominal Pain ---
General Chief Complaint: Abdominal/GI Problems Stated Complaint: ABD PAIN Nursing Triage Note: Patient has presented to ER with cc of right sided abd pain and nausea for the last 3 days. The pain has gotten worse with each day. He has not taken anything for his symptom and came to ER for evaluation. Source of Information: Patient Exam Limitations: Intoxication History of Present Illness Date Seen by Provider: Mar 05, 2022 Time Seen by Provider: 12:45 Initial Comments Patient is an 81-year-old male who presents with vague right upper quadrant pain/tenderness starting approximately 40 hours prior to ED arrival. Pain is described as dull, nonradiating, and nonmigratory and is gradually worsening. Symptoms are worse after eating. He denies chest pain palpitations, shortness of breath. No flank pain back pain, diarrhea. No urinary frequency urgency or dysuria. No other acute symptoms or complaints. History of kidney stones. Timing/Duration: 1-3 Hours Severity/Quality: Moderate Location: RUQ Radiation: Other Activities at Onset: Other Modifying Factors: Improves With Other Associated Symptoms: Other Allergies and Home Medications Allergies Coded Allergies: Iodinated Contrast Media (Unverified Allergy, Unknown, 08/24/19) Sulfa (Sulfonamide Antibiotics) (Unverified Allergy, Unknown, 08/24/19) alfuzosin HCl (Unverified Allergy, Unknown, 08/24/19) celecoxib (Unverified Allergy, Unknown, 08/24/19) levofloxacin (Verified Allergy, Unknown, 08/24/19) venom-wasp (Verified Allergy, Unknown, 08/24/19) Patient Home Medication List Home Medication List Reviewed: Yes Allopurinol (Allopurinol) 300 Mg Tablet, 300 MG PO HS, (Reported) Entered as Reported by: MICHAEL SPENCER on 05/30/21 1435 Flecainide Acetate (Flecainide Acetate) 100 Mg Tablet, 100 MG PO Q12H, (Re ported) Entered as Reported by: MICHAEL SPENCER on 05/30/21 1435 Furosemide (Furosemide) 40 Mg Tablet, 40 MG PO DAILY, (Reported) Entered as Reported by: MICHAEL SPENCER on 05/30/21 1435 Magnesium Oxide (Magnesium) 400 Mg Tablet, 400 MG PO DAILY, (Reported) Entered as Reported by: MICHAEL SPENCER on 05/30/21 1435 Metoprolol Succinate (Metoprolol Succinate) 25 Mg Tab.er.24h, 25 MG PO DAILY, (Reported) Entered as Reported by: MICHAEL SPENCER on 05/30/21 1435 Pantoprazole Sodium (Pantoprazole Sodium) 40 Mg Tablet.dr, 40 MG PO DAILY Prescribed by: HARRY VERAS on 05/31/21 1244 Potassium Chloride (Potassium Chloride) 20 Meq Tab.er.prt, 20 MEQ PO DAILY, (Reported) Entered as Reported by: MICHAEL SPENCER on 05/30/21 1435 Tamsulosin HCl (Flomax) 0.4 Mg Cap, 0.4 MG PO HS, (Reported) Entered as Reported by: MICHAEL SPENCER on 05/30/21 1435 Review of Systems Review of Systems Constitutional: see HPI EENTM: See HPI Respiratory: See HPI Cardiovascular: See HPI Gastrointestinal: No Symptoms Reported Genitourinary: Burning Musculoskeletal: see HPI Skin: see HPI Psychiatric/Neurological: See HPI Endocrine: See HPI Hematologic/Lymphatic: See HPI All Other Systems Reviewed Negative Unless Noted: No Past Jsnxgnf-Wjmyvz-Gqqhbv Hx Patient Social History Tobacco Use?: No Use of E-Cig and/or Vaping dev: No Substance use?: No Alcohol Use?: No Immunizations Up To Date Tetanus Booster (TDap): Unknown First/Initial COVID19 Vaccinat: 09/2020 Second COVID19 Vaccination Maged: 10/2020 Third COVID19 Vaccination Date: 09/2020 Seasonal Allergies Seasonal Allergies: No Past Medical History Surgeries: No Respiratory: Yes Sleep Apnea Cardiac: Yes (Proxsymal Atrial Tachycardia) Hypertension Neurological: No Genitourinary: Yes Benign Prostatic Hyperpl Gastrointestinal: No Musculoskeletal: Yes (GOUT) Endocrine: Yes Diabetes, Non-Insulin dep HEENT: No Cancer: Yes Skin Psychosocial: No Integumentary: No Blood Disorders: No Family Medical History No Pertinent Family Hx Physical Exam Vital Signs Vital Signs - First Documented 03/05/22 13:58 Temp 36.2 Pulse 57 Resp 20 B/P (MAP) 118/67 (84) Pulse Ox 95 O2 Delivery Room Air Capillary Refill : Height/Weight/BMI Height: 5'9.00" Weight: 225lbs. 0.0oz. 102.273507mg; 30.00 BMI Method: General Appearance: WD/WN, no apparent distress HEENT: PERRL/EOMI, normal ENT inspection Respiratory: lungs clear Cardiovascular: normal peripheral pulses, regular rate, rhythm Gastrointestinal: soft, other (RUQ pain/tenderness) Extremities: non-tender Neurologic/Psychiatric: no motor/sensory deficits, alert, normal mood/affect, oriented x 3 Skin: normal color Focused Exam Sepsis Stage: Ruled Out Progress/Results/Core Measures Results/Orders Lab Results Laboratory Tests Test 03/05/22 13:10 Range/Units White Blood Count 9.4 4.3-11.0 10^3/uL Red Blood Count 5.06 4.30-5.52 10^6/uL Hemoglobin 15.9 13.3-17.7 g/dL Hematocrit 46 40-54 % Mean Corpuscular Volume 90 80-99 fL Mean Corpuscular Hemoglobin 31 25-34 pg Mean Corpuscular Hemoglobin Concent 35 32-36 g/dL Red Cell Distribution Width 14.7 H 10.0-14.5 % Platelet Count 188 130-400 10^3/uL Mean Platelet Volume 10.2 9.0-12.2 fL Immature Granulocyte % (Auto) 0 % Neutrophils (%) (Auto) 67 42-75 % Lymphocytes (%) (Auto) 23 12-44 % Monocytes (%) (Auto) 8 0-12 % Eosinophils (%) (Auto) 1 0-10 % Basophils (%) (Auto) 0 0-10 % Neutrophils # (Auto) 6.3 1.8-7.8 10^3/uL Lymphocytes # (Auto) 2.2 1.0-4.0 10^3/uL Monocytes # (Auto) 0.8 0.0-1.0 10^3/uL Eosinophils # (Auto) 0.1 0.0-0.3 10^3/uL Basophils # (Auto) 0.0 0.0-0.1 10^3/uL Immature Granulocyte # (Auto) 0.0 0.0-0.1 10^3/uL Urine Color YELLOW Urine Clarity CLEAR Urine pH 5.5 5-9 Urine Specific [place] 1.010 L 1.016-1.022 Urine Protein NEGATIVE NEGATIVE Urine Glucose (UA) NEGATIVE NEGATIVE Urine Ketones NEGATIVE NEGATIVE Urine Nitrite NEGATIVE NEGATIVE Urine Bilirubin NEGATIVE NEGATIVE Urine Urobilinogen 0.2 < = 1.0 MG/DL Urine Leukocyte Esterase NEGATIVE NEGATIVE Urine RBC (Auto) NEGATIVE NEGATIVE Urine RBC NONE /HPF Urine WBC NONE /HPF Urine Squamous Epithelial Cells 5-10 /HPF Urine Crystals NONE /LPF Urine Bacteria TRACE /HPF Urine Casts NONE /LPF Urine Mucus SMALL H /LPF Urine Culture Indicated NO Sodium Level 137 135-145 MMOL/L Potassium Level 3.0 L 3.6-5.0 MMOL/L Chloride Level 104 98-107 MMOL/L Carbon Dioxide Level 21 21-32 MMOL/L Anion Gap 12 5-14 MMOL/L Blood Urea Nitrogen 10 7-18 MG/DL Creatinine 0.75 0.60-1.30 MG/DL Estimat Glomerular Filtration Rate 91 BUN/Creatinine Ratio 13 Glucose Level 128 H 70-105 MG/DL Calcium Level 9.2 8.5-10.1 MG/DL Corrected Calcium 9.0 8.5-10.1 MG/DL Total Bilirubin 2.0 H 0.1-1.0 MG/DL Aspartate Amino Transf (AST/SGOT) 106 H 5-34 U/L Alanine Aminotransferase (ALT/SGPT) 96 H 0-55 U/L Alkaline Phosphatase 357 H 40-136 U/L Total Protein 7.7 6.4-8.2 GM/DL Albumin 4.2 3.2-4.5 GM/DL Amylase Level 39 25-125 U/L My Orders Orders - ANDREW JIANG DO Cbc With Automated Diff (03/05/22 13:19) Comprehensive Metabolic Panel (03/05/22 13:19) Amylase (03/05/22 13:19) Ua Culture If Indicated (03/05/22 13:19) Morphine Injection (Morphine Injection (03/05/22 13:19) Ondansetron Injection (Zofran Injectio (03/05/22 13:30) Ns Iv 1000 Ml (Sodium Chloride 0.9%) (03/05/22 13:30) Ct Abdomen/Pelvis Wo (03/05/22 13:19) Fentanyl Inj (Sublimaze Injection) (03/05/22 14:00) Ondansetron Injection (Zofran Injectio (03/05/22 14:00) Potassium Chloride (Tablet) (K Dur Table (03/05/22 14:15) Zosyn 4.5 Gm (X1)Ed Only (03/05/22 18:45) Blood Culture (03/05/22 18:31) Medications Given in ED Current Medications Medications Dose Ordered Sig/Preethi Route Start Time Stop Time Status Last Admin Dose Admin Fentanyl Citrate 50 mcg ONCE ONCE IVP 03/05/22 14:00 03/05/22 14:01 DC 03/05/22 15:08 50 MCG Ondansetron HCl 4 mg ONCE ONCE IVP 03/05/22 13:30 03/05/22 13:31 DC 03/05/22 13:29 4 MG Ondansetron HCl 4 mg ONCE ONCE IVP 03/05/22 14:00 03/05/22 14:01 DC 03/05/22 14:06 4 MG Potassium Chloride 60 meq ONCE ONCE PO 03/05/22 14:15 03/05/22 14:16 DC 03/05/22 14:27 60 MEQ Vital Signs/I&O 03/05/22 03/05/22 13:58 18:21 Temp 36.2 37.8 Pulse 57 89 Resp 20 16 B/P (MAP) 118/67 (84) 122/69 Pulse Ox 95 96 O2 Delivery Room Air Room Air Blood Pressure Mean: 84 Departure Communication (Admissions) CT abdomen pelvis: Cholelithiasis without evidence of cholecystitis Patient with epigastric/right upper quadrant pain with retained common bile duct stone and elevated LFTs. Findings consistent with acute cholecystitis with choledocholithiasis. IV antibiotics given. Patient accepted to [facility]. Impression Primary Impression: Abdominal pain Additional Impressions: Choledocholithiasis with obstruction Cholecystitis Disposition: S[facility]-TRM HOSP Condition: Stable Transfer Transfer Reason: Exceeds level of care Time Spoke to Accepting Phy: 15:00 (Dr. Franklin) Method of Transfer: EMS Departure-Patient Inst. Referrals: SARAH MURRY MD (PCP) Primary Care Physician ANDREW JIANG DO Mar 05, 2022 14:47
[2022-03-05 18:21] VITALS: BP 122/69
[2022-03-05] MEDS ORDERED: PIPERACILLIN SODIUM/TAZOBACTAM 4.5 GM in NS (IVPB) 100 ML IV ONE (18:45)
== END 2022-03-05 18:50 | disposition short-term general hospital (02) ==
LOC: EDUNIT# 12:56 → ER FS 12:58
DX: K80.41 Calculus of bile duct with cholecystitis, unspecified, with obstruction (principal)
CPT/HCPCS: 36415; 74176; 80053; 81000; 82150; 85025; 87040

== ENCOUNTER → 2023-02-14 | Outpatient (CLI) | payer MEDICARE, OTHER ==
--- NOTE | 2023-02-14 13:38 | Diagnostic Imaging Report ---
PROCEDURE: MRI lumbar spine. TECHNIQUE: Multiplanar, multisequence MRI of the lumbar spine was performed without contrast. INDICATION: Low back pain. COMPARISON: None. FINDINGS: There is trace anterolisthesis at L4-L5 and L5-S1. Vertebral body heights are generally preserved. There are Modic type I degenerative endplate changes at L2-L3 and Modic type II degenerative endplate changes at T12-L1. There is complete bone fusion across the L3 and L4 vertebral bodies. There is multilevel disc height loss, seen throughout the lumbar spine, most pronounced at L4-L5 and L5-S1. No acute fracture is seen. The conus terminates in appropriate position. Soft tissues about the lumbar spine demonstrate no acute abnormality. T11-T12: Mild disc bulge and facet arthropathy. Minimal spinal canal narrowing. Moderate right and severe left foraminal stenosis. T12-L1: Mild disc bulge and facet arthropathy. Minimal spinal canal narrowing. Mild bilateral foraminal narrowing. L1-L2: Diffuse disc bulge and facet arthropathy with mild spinal canal narrowing. Moderate bilateral foraminal stenosis. L2-L3: Diffuse disc bulge and facet arthropathy with ligamentous infolding. Moderate spinal canal stenosis with narrowing of the lateral recesses bilaterally. Moderate bilateral foraminal stenosis. L3-L4: Osteophytes and facet arthropathy with ligamentous infolding. Mild spinal canal narrowing. Moderate bilateral foraminal stenosis. L4-L5: Diffuse disc bulge and facet arthropathy with ligamentous infolding. Moderate spinal canal stenosis with narrowing of the lateral recesses bilaterally. Moderate bilateral foraminal stenosis. L5-S1: Diffuse disc bulge and facet arthropathy with ligamentous infolding. Mild spinal canal narrowing. Severe bilateral foraminal stenosis. IMPRESSION: 1. 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 2. Multilevel foraminal stenosis, most severe at T11-T12 on the left and at L5-S1 bilaterally. 3. Bony fusion across the L3-L4 vertebral levels. Dictated by: Dictated on workstation # [id number]
== END ==
LOC: RAD 12:27
PROVIDERS: ATTEND Nurse Practitioner
DX: M51.16 Intervertebral disc disorders with radiculopathy, lumbar region (principal); M47.26 Other spondylosis with radiculopathy, lumbar region; M48.061 Spinal stenosis, lumbar region without neurogenic claudication; M43.26 Fusion of spine, lumbar region; M48.04 Spinal stenosis, thoracic region; M48.07 Spinal stenosis, lumbosacral region
CPT/HCPCS: 72148